=== PATIENT | female | born 1995 | race Caucasian/White ===

== ENCOUNTER 2025-01-11 09:26 | Outpatient (AMB) | payer BC, SELFPAY ==
--- OUTSIDE RECORDS SUMMARY | 2023-10-19 14:58 | XMS_ITS | Encounter Summary ---
Author Organization [facility] Address [address] [place] [address] Care Team Providers Care Stripper Color Name Role Phone Cony Guardado MD Unavailable Tanner Santiago MD Primary Care Provider [phone] Encounter Details Date Type Department Care Team (Late st Contact Info) Description 10/19/2023 3:58 PM EDT Hospital Encounter [facility] Ur[facility] Care [address] [place] [address] Social History Tobacco Use Types Packs/Day [...] and Family Not on file 10/28/2024 Attends [employer] Services Not on file 10/28 Active Member [...] any time in the past 12 m [facility], were you homeless or living in a snf (including now)? No 10/28/2024 Education Answer Date [...] on filedocumented in this encounter Care Teams Stripper Color Relationship Specialty Start Date End Date Tanner Santiago MD [address] [place] [phone] PCP - General Internal Medicine 08/18/23 Cony Guardado MD [address] [place] [id number] Gastroenterology 08/16/23 documented as of this encounter
--- OUTSIDE RECORDS SUMMARY | 2025-01-11 09:29 | XMS_ITS | Encounter Summary ---
Author Organization [facility] Address [address] [place] [address] Phone Care Team Providers Care Garment Sewing Machine Operator Name Role Phone Unavailable Primary Care Provider Unavailabl e Encounter Details Date Type Department Care Team (Late st Contact Info) Description 04/14/2009 Documentation EM Family Medicine [address] [place], [place] [id number] Family Medicine, Physician [address] [place] [address] Social History Tobacco Use Types Packs/Day Years Used Date Smoking Tobacco: Never Assessed Comments Unknown Sex and Gender Information Value Date Recorded Sex Assigned at Not on file Legal Sex Female 6:09 PM EDT Gender Identity Not on file Sexual Orientation Not on file documented as of this encounter Plan of Treatment Not on file documented as of this encounter Visit Diagnoses Not on filedocumented in this encounter
--- OUTSIDE RECORDS SUMMARY | 2025-01-11 09:29 | XMS_ITS | Clinical Summary ---
Author Organization [facility] Address [address] [place] [address] Care Team Providers Care Breakfast Host Name Role Phone Cony Guardado MD Unavailable Tanner Santiago MD Primary Care Provider [phone] Allergies Active Allergy Reactions Criticality Noted Date Comments Amoxicillin-Pot Clavulanate Rash/Dermatitis Low 04/15/2011 Codeine Nausea And Vomiting 09/20/2012 Diphenhydramine Other (See Comments) Medium 02/15/2016 QT syndrome Latex Hives High 02/12/2013 Miconazole Other (See Comments) Low 05/10/2011 Morphine Anaphylaxis,Shortne ss Of Breath,Rash/Dermati tis High 06/19/2014 Penicillins Rash/Dermatitis Low 04/15/2011 Prochlorperazine Dyskinesia/Dystonia Medium 05/10/2011 Promethazine Unknown/Patient and Family Unable to Define,Dyskinesia/D ystonia,Other (See Comments) Medium 04/15/2011 Loss of muscle control Pseudoephedrine Other (See Comments),Benign arrhythmia High 08/10/2023 Sertraline Unknown/Patient and Family Unable to Define Medium 08/10/2023 pt reports she had an adverse reaction to this in the past Sulfamethoxazole-Trimethop rim Hives High 09/13/2024 Tramadol Hives High 09/20/2023 Medications acetaminophen (TYLENOL) 500 MG tablet Active Cyanocobalamin 1000 MCG Cap Take 1,000 mcg by mouth daily. Active ferrous sulfate 325 (65 FE) MG tablet Take 1 tablet (325 mg total) by mouth every morning with breakfast. Active Riboflavin 400 MG Tab 01/16/20 24 Active albuterol (PROVENTIL HFA; VENTOLIN HFA) 108 (90 Base) MCG/ACT inhalerIndicati ons:Mild intermittent asthma without complication Inhale 2 puffs 4 times daily (every 6 hours) as needed for wheezing. 1 each 03/05/20 24 Active bisacodyl (DULCOLAX) 5 MG EC tabletIndicatio ns:Abnormal CT scan, colon,Iron deficiency,Loos e stools,Weight loss Take 4 tablets (20 mg total) by mouth once. Take all 4 tablets 1 hour prior to starting to drink prep, on day prior to colonoscopy. 4 tablet 07/16/19 25 Active Additional Information Patient not taking.Reported on 10/30/2024 tranexamic acid (LYSTEDA) 650 MG Tab tabletIndicatio ns:Heavy Menstrual Bleeding Take 2 tablets (1,300 mg total) by mouth 3 (three) times a day. 30 tablet 1 09/25/19 25 Active Additional Information Patient not taking.Reported on 10/30/2024 medroxyPROGESTE Rodri (PROVERA) 5 MG tablet 10/15/19 25 Active OMEprazole (PriLOSEC) 40 MG capsuleIndicati ons:Dyspepsia,M ucus in stool,Bloody stool TAKE 1 CAPSULE BY MOUTH EVERY MORNING BEFORE BREAKFAST. TAKE ATLEAST 1/2 HOUR BEFORE MEAL. 30 capsule 3 12/21/19 25 Active OMEprazole (PriLOSEC) 40 MG capsuleIndicati ons:Dyspepsia,M ucus in stool,Bloody stool Take 1 capsule (40 mg total) by mouth every morning before breakfast. Take atleast 1/2 hour before meal. 30 capsule 3 12/19/19 25 025 Discontinued OMEprazole (PriLOSEC) 40 MG capsuleIndicati ons:Dyspepsia,M ucus in stool,Bloody stool TAKE 1 CAPSULE BY MOUTH EVERY MORNING BEFORE BREAKFAST. TAKE ATLEAST 1/2 HOUR BEFORE MEAL. 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 08/18/2023 08/18/2023 PFO (patent foramen ovale) 08/18/202308/17 Endometriosis 08/18/2023 08/18/2023 Current smoker 08/18/2023 08/18/2023 Asthma, moderate persistent 08/18/202308/04 Polycystic ovaries 08/18/2023 08/18/2023 Prolonged QT interval 05/17/2011 08/18/2023 Overview (08/18/2023): See pediatric cardiolgy report 12/14/2011 Weight loss 05/10/2011 08/18/2023 Resolved Problems Problem Noted Date Diagnosed Date Resolved Date Mood disorder 08/18/2023 08/18/2023 08/18/2023 Encounters Date Type Department Care Team Description 10/30/2024 2:00 PM EDT Telemedicine [address] [phone] Tanner Santiago MD Infertility management (Primary Dx) 10/30/2024 Travel 10/15/2024 10:30 AM EDT Office Visit [facility] [place] [address] [place] [address] Sherlyn Coronado MD Fibroadenoma of breast, right (Primary Dx) 10/15/2024 8:56 AM EDT - 10/15/2024 11:59 PM EDT Hospital Encounter [facility] [address] [place] [address] Fibroadenoma, right Discharge Disposition: Home or Self Care 10/15/2024 Travel from Last 3 Months Immunizations Immunization Administration Dates Next Due DTaP 06/05/1998, 5,1993,08/11,1993 DTaP / HiB / IPV 07/12/1994,199 4,1993,06/09 H1N1 All Forms 04/30/2009 H1N1 Inj Preservative Free 04/30/2009 HPV Quadrivalent 09/18/2008,12/22/2007, 8 Hep B, Adolescent or Pediatric 1993,1993,1993 Hib 07/12/1994,199 4,1993,06/09 Hib (PRP-T) 07/12/1994, 4,1993,06/09 IPV 06/05/1998, 5,1993,06/09 Influenza (AFLURIA/FLUZONE) Inactivated/Split Quadrivalent with Preservative IM 12/07/2010,12/10/2009,12/22/2007 Influenza Inactivated/Split Preservative Free IM 12/26/2022,12/29/2021,12/16/2020,01/19,12/06/2017,02/09/2017,12/20/2016 ,12/18/2015,02/11/2015,12/18/2013,08/2012,12/07/2010,12/10/2009, 8,12/19/2006,01/05/2006,07/28/2003 Influenza Virus Trivalent Sp lit Vaccine (MDV) IM 12/26/2022,12/29/2021,12/16/2020,01/19,12/06/2017,02/09/2017,12/20/2016 ,12/18/2015,02/11/2015,12/18/2013,0 08/2012,12/07/2010,12/10/2009, 8,12/19/2006,01/05/2006,07/28/2003 Influenza Whole 12/04/2018 Influenza, Unspecified 01/01/2024,2009,12/19/2006,07/27 MMR 06/05/1998,07/12/1994 Meningococcal MCV4P (Menactra) 09/11/2007 Meningococcal Polysaccharide MenACWY-TT Conjugate (Penbraya) 09/11/2007 Meningococcal, Unspecified 09/11/2007 PPD Test 02/15/2016,05/14/2012 Pneumococcal Polysaccharide 23-Valent 09/05/2017 Td 06/26/2003 Td, Unspecified 06/26/2003 Tdap 11/30/2021, 9,09/18/2008,06/25 Varicella 05/16/2012,05/16/2012,03/06/1997 Family History Medical History Relation Name Comments Blood Clots Maternal Aunt Bebe Blood clot in leg Hypertension Maternal Aunt Bebe Colon polyps Maternal Grandfather Rich Multipl e colon polyps Heart attack Maternal Grandfather Rich Hypertension Maternal Grandfather Rich Prostate cancer Maternal Grandfather Rich Skin cancer Maternal Grandfather Rich Blood Clots Maternal Grandmother Vero Blood c lot in legs Hypertension Maternal Grandmother Vero Bleeding Disorder Mother Mom Vontonielibra nt Crohn's disease Mother Mom Diabetes Paternal Grandfather Rolalnd Breast cancer Paternal Grandmother Grandmother Starte d in abdomen Cancer, other Paternal Grandmother Grandmother Colon cancer Paternal Grandmother Grandmother Stomach cancer Paternal Grandmother Grandmother Thyroid disease Sister Melody Worley Relation Name Status Comments Father Alive Maternal Aunt Bebe Maternal Grandfather Rich Maternal Grandmother Vero Mother Mom Alive Paternal Grandfather Rolalnd Alive Paternal Grandmother Grandmother Sister Melody Alive Social History Tobacco Use Types Packs/Day Years Used Date Smoking Tobacco: Never Smokeless Tobacco: Never Tobacco Cessation:Counseling Given: Not Answered Comments:Second hand exposure. Alcohol Use Standard Drinks/Week Comments Not Currently 0 (1 standard drink = 0.6 oz pur e alcohol) Socially, rarely [facility] Utilities Answer Date Recorded In the past 12 months has [employer], gas, oil, or water [employer] threatened to shut off services in your home? No 10/28/2024 Social Connection and Isolation Panel Answer Date Recorded In a typical week, how many times do you talk on the phone with family, friends, or neighbors? More than three times a week 10/28/2024 Frequency of Social Gatherin gs with Friends and Family Not on file 10/28/2024 Attends [employer] Services Not on file 10/28 Active Member [...] any time in the past 12 m [facility], were you homeless or living in a detention (including now)? No 10/28/2024 Education Answer Date [...] Orientation Heterosexual (straight) 01/12 4:38 PM EST Last Filed Vital Signs Vital Sign Reading Time Taken Comments Blood Pressure 108/70 10/15/2024 9:15 AM EDT Pulse 85 10/15/2024 9:15 AM EDT Temperature 36.8 C (98.3 F) 10/15/2024 9:15 AM EDT Respiratory Rate 18 10/15/2024 9:15 AM EDT Oxygen Saturation 98% 10/15/2024 9:15 AM EDT Inhaled Oxygen Concentration - - Weight 70.3 kg (155 lb) 10/30/2024 1:41 PM EDT Height 165.1 cm (5' 5 ) 10/30/2024 1:41 PM EDT Body Mass Index 25.79 10/30/2024 1:41 PM EDT Plan of Treatment Health Maintenance Due Date Last Done Comments Hepatitis C Virus Screening 1993 Physical 2011 Pneumococcal Vaccine: Pediat faviola (0-5 Years) and At-Risk Patients (6 to 49 Years) (2 of 2 - PCV) 09/05/2018 09/05/2017 Influenza Vaccine 10/04/2024 01/01/2024, , 12/26/2022, Additional history exists COVID-19 Vaccine ( - 2024-2 6 season) 2024 03/27/2021, 04/09/2020, 03/12/2020 Pap Smear (Ages 21-65) 08/20/2027 08/19/2024 Colonoscopy (Out of Age Range) 08/14/2029 08/14/2024 DTaP/Tdap/Td Vaccines (10 - Td or Tdap) 12/01/2031 11/30/2021, 09/18/2008, 09/18/2008, Additional history exists Hepatitis B Vaccines Completed 1993, 1993, 1993 HPV Vaccines Completed 09/18/2008, 12/04, 09/11/2007 HIV Screening Completed 08/19/2023 Procedures Procedure Name Priority Date/Time Associated Diagnosis Comments US BREAST DIAGNOSTIC LIMITED-RIGHT Routine 10/15/2024 9:24 AM EDT Fibroadenoma, right THINPREP PAP(TEACHER DANCING) HPV SCR RFX HPV 16,18/45 Routine 08/19/2024 12:00 AM EDT HIV 1/2 AG/AB CMIA REFLEX TO CONFIRMATION Routine 08/19/2023 9:54 AM EDT Mononucleosis syndrome from Last 3 Months or Most Recently Relevant to Health Maintenance Results * US Breast diagnostic limited-Right (10/15/2024 9:24 AM EDT) Anatomical Region Laterality Modality Breast Right Ultrasound 10/15/2024 9:20 AM EDT Impressions 10/15/2024 9:21 AM EDT Unchanged hypoechoic mass right 12:00, status post guided biopsy, benign. ASSESSMENT: BI-RADS 2 - Benign. RECOMMENDATION: Return to routine annual screening mammogram Narrative 10/15/2024 9:21 AM EDT US BREAST DIAGNOSTIC LIMITED-RIGHT: 10/15/2024 9:04 AM CLINICAL INFORMATION: Follow-up for probably right breast mass status post ultrasound-guided biopsy. COMPARISON: 04/08/2024 03/28/2024 TECHNIQUE: Focused right breast ultrasound was performed. FINDINGS: Unchanged hypoechoic mass 12:00 4 cm from the nipple, biopsy-proven benign, measures 8 x 4 x 4 mm. us Sherlyn Coronado MD IMG US ORDERABLES Final Re sult * ThinPrep Pap(Rover Tender) HPV Scr Rfx HPV 16,18/45 (08/19/2024 12:00 AM EDT) Report Report [facility] Comment: Final Gynecological Cytology Report ThinPrep Pap Test, HPV Screen, Reflex HPV Genotype SPECIMEN ADEQUACY: SATISFACTORY FOR EVALUATION; ENDOCERVICAL/TRANSFORMATION ZONE COMPONENT ABSENT/INSUFFICIENT . INTERPRETATION: NEGATIVE FOR INTRAEPITHELIAL LESION OR MALIGNANCY. Electronically Signed: Evan Conner, CT(ASCP) CLINICAL INFORMATION: LMP: NG Clinical History: NG Biopsy Date: NG Specimen Source: Cervix, Endocervix Previous Pap Date: NG HPV RESULTS: HPV mRNA E6/E7 [id number] Approved: 08/20/24 Negative REF RANGE: Negative CPT Codes: 82715 ICD Codes: Z12.4 08/19/2024 08/20/2024 12: 04 PM EDT Pauly Aleman MD LAB AMB PATH/CYTO ORDERABLE S Final Result [facility] [address] [place], [place] * HIV 1/2 Ag/Ab CMIA Reflex to Confirmation (08/19/2023 9:54 AM EDT) HIV Ag/Ab, 4th Gen NON-REACT MARGARITO NON-REACT MARGARITO ClearView™ Audio Comment: HIV-1 antigen and HIV-1/HIV-2 antibodies were not detected. There is no laboratory evidence of HIV infection. PLEASE NOTE: This information has been disclosed to you from records whose confidentiality may be protected by state law. If your state requires such protection, then the state law prohibits you from making any further disclosure of the information without the specific written consent of the person to whom it pertains, or as otherwise permitted by law. A general authorization for the release of medical or other information is NOT sufficient for this purpose. For additional information please refer to http://education.[employer]/faq/QNF024 (This link is being provided for informational/ educational purposes only.) The performance of this assay has not been clinically validated in patients less than 2 years old. Blood Blood specimen / Unknown 08/19/2023 9:54 AM EDT 08/19/2023 9:55 AM EDT Narrative [facility] - 08/21/2023 5:42 PM EDT FASTING:YES FASTING: YES Tanner Santiago MD LAB BLOOD ORDERABLES Final Resu lt Breather [address] [place] [phone] from Last 3 Months or Most Recently Relevant to Health Maintenance Insurance [facility] Care Teams Breakfast Host Relationship Specialty Start Date End Date Tanner Santiago MD [address] [place] [phone] PCP - General Internal Medicine 08/18/23 Cony Guardado MD [address] [place] [phone] Gastroenterology 08/16/23
--- OUTSIDE RECORDS SUMMARY | 2025-01-11 09:29 | XMS_ITS | Clinical Summary ---
Author Organization [address] Address [address] [place] [phone] Phone Care Team Providers Care Dump Worker Name Role Phone Unavailable Primary Care Provider Unavailabl e Allergies Active Allergy Reactions Criticality Noted Date Comments Diphenhydramine Hcl Other (See Comments) Medium 02/15/2016 QT syndrome Fluconazole Rash Low 09/13/2024 Latex Hives High 02/12/2013 Macrolide Antibiotics Hives,Other (See Comments) High 05/10/2011 QT syndrome Promethazine Mental Status Change,Other (See Comments),Unknown High 04/15/2011 Loss of muscle control Loss of muscle control Loss of muscle control Loss of muscle control Loss of muscle control Loss of muscle control Pseudoephedrine Arrhythmia,Other (See Comments) High 08/10/2023 Sertraline Other (See Comments),Unknown High 08/10/2023 pt reports she had an adverse reaction to this in the past Sulfamethoxazole-Trimetho prim Hives High 09/13/2024 Tramadol Hives High 09/20/2023 Medications VENTOLIN HFA 90 mcg/actuation HFA aerosol inhaler INHALE 2 PUFFS BY MOUTH EVERY 6 HOURS NEEDED FOR WHEEZE 03/05/2024 Active Active Problems No known active problems Family History Relation Name Status Comments Father Alive Mother Alive Social History Tobacco Use Types Packs/Day Years Used Date Smoking Tobacco: Never Passive Smoke Exposure: Never Smokeless Tobacco: Never Tobacco Cessation:Counseling Given: Not Answered Alcohol Use Standard Drinks/Week Comments Not Currently 0 (1 standard drink = 0.6 oz pur e alcohol) Comments No Sex and Gender Information Value Date Recorded Sex Assigned at Not on file Legal Sex Female 3:12 PM EDT Gender Identity Not on file Sexual Orientation Not on file Last Filed Vital Signs Vital Sign Reading Time Taken Comments Blood Pressure 110/73 09/13/2024 6:06 PM EDT Pulse 101 09/13/2024 6:06 PM EDT Temperature 37 C (98.6 F) 09/13/2024 6:06 PM EDT Respiratory Rate 18 09/13/2024 6:06 PM EDT Oxygen Saturation 100% 09/13/2024 6:06 PM EDT Inhaled Oxygen Concentration - - Weight 68 kg (150 lb) 09/13/2024 6:06 PM EDT Height 165.1 cm (5' 5 ) 09/13/2024 6:06 PM EDT Body Mass Index 24.96 09/13/2024 6:06 PM EDT Plan of Treatment Health Maintenance Due Date Last Done Comments HIV screening 2006 Hepatitis C screening 2011 Influenza vaccine 10/04/2024 01/01/2024, , 12/29/2021, Additional history exists Covid-19 vaccine series ( - 2024- season) 2024 Cervical cancer screening 08/19/2029 08/19/2024 Tetanus adult (Td q 10,TDAP once) 12/01/2031 11/30/2021, 09/18/2008, 06/26/2003, Additional history exists RSV Immunization (1 - 1-dose 75+ series) 2068 Meningococcal B Vaccine Aged Out 09/11/2007 No l onger eligible based on patient's age to complete this topic Meningococcal Vaccine Aged Out 09/11/2007, 008 No longer eligible based on patient's age to complete this topic Pneumococcal Vaccine (2 - 49 years) Aged Out 09/05/2017 No longer eligible based on patient's age to complete this topic Insurance [employer]
--- OUTSIDE RECORDS SUMMARY | 2025-01-11 09:29 | XMS_ITS | Encounter Summary ---
Author Organization [facility] Address [address] [place] [address] Care Team Providers Care Rn Surgical Name Role Phone Cony Guardado MD Unavailable Tanner Santiago MD Primary Care Provider [phone] Encounter Details Date Type Department Care Team (Late st Contact Info) Description 08/14/2024 Scanned Document [facility] [address] [facility] [place] [address] [place] [address] Louie Nguyen MD [address] [facility] [address] [place] [address] Social History Tobacco Use Types Packs/Day Years Used Date Smoking Tobacco: Never Smokeless Tobacco: Never Comments:Second hand exposur e. Alcohol Use Standard Drinks/Week Comments Not Currently 0 (1 standard drink = 0.6 oz pur e alcohol) Socially, rarely Comments No Sex and Gender Information Value Date Recorded Sex Assigned at Female 01/12/2023 4:38 PM EST Legal Sex Female 6:33 PM EST Gender Identity Female 01/12/2023 4:38 PM EST Sexual Orientation Heterosexual (straight) 01/12 4:38 PM EST documented as of this encounter Progress Notes * Cynthia Hill MA - 08/14/2024 2:20 PM EDT My chart message sent to pt to review results from Dr. Zaidi Seen by patient Ashlie Elizabeth Saira on 08/22/2024 5:43 PM HM UPDATED RECALL COLON: 5 YEARS RECALL EGD PATH SENT TO PCP documented in this encounter Plan of Treatment Not on file documented as of this encounter Procedures Procedure Name Priority Date/Time Associated Diagnosis Comments PATHOLOGY REPORT 08/14/2024 12:0 0 AM EDT documented in this encounter Results * Pathology (08/14/2024 12:00 AM EDT) us Louie Nguyen MD PATHOLOGY/CYTOLOGY KASSIDY YANCEY Final Result documented in this encounter Visit Diagnoses Not on filedocumented in this encounter Care Teams Rn Surgical Relationship Specialty Start Date End Date Tanner Santiago MD [address] [place] [id number] PCP - General Internal Medicine 08/18/23 Cony Guardado MD [address] [place] [id number] Gastroenterology 08/16/23 documented as of this encounter
--- OUTSIDE RECORDS SUMMARY | 2025-01-11 09:29 | XMS_ITS | Clinical Summary ---
Author Organization [facility] Building Address [address] [place] [address] Phone Care Team Providers Care Certified Executive Chef Name Role Phone Be Woodward MD Primary Care Provider [phone] Allergies Active Allergy Reactions Criticality Noted Date Comments Amoxicillin-Pot Clavulanate Other,Rash Low 04/15/2011 Codeine Nausea And Vomiting 09/20/2012 Macrolide Antibiotics Other 05/10/2011 Miconazole Other 05/10/2011 Morphine Anaphylaxis,Other,R elyse,Shortness of breath High 06/19/2014 Penicillins Other,Rash Low 04/15/2011 Prochlorperazine Other Medium 05/10/2011 Promethazine Other Medium 04/15/2011 Loss of muscle control Loss of muscle control Loss of muscle control Pseudoephedrine Other High 08/10/2023 Sertraline Other Medium 08/10/2023 pt reports she had an adverse reaction to this in the past Tramadol 09/20/2023 Medications acetaminophen (TYLENOL) 500 mg tablet Active albuterol HFA (PROAIR HFA ; PROVENTIL HFA ; VENTOLIN HFA) 90 mcg/actuation inhaler Inhale 2 puffs by mouth every 6 hours as needed. 4 Active cyanocobalamin, vitamin B-12, 1,000 mcg capsule Take by mouth. Activ e ferrous sulfate 325 mg (65 mg elemental iron) tablet Take 1 tablet (325 mg total) by mouth every morning with breakfast. Active gabapentin (NEURONTIN) 100 mg capsule Take 1 capsule (100 mg total) by mouth 3 (three) times a day. 4 Active methocarbamoL (ROBAXIN) 500 mg tablet Take 1 tablet (500 mg total) by mouth 3 (three) times a day as needed. - Oral Active diclofenac (VOLTAREN) 1 % topical gel Apply 2 g topically 4 (four) times a day as needed. - Apply externally Active lidocaine (LIDODERM) 5 % patch Place 1 patch onto the skin every 12 (twelve) hours. Remove & Discard patch within 12 hours or as directed by MD - Transdermal Active LORazepam (Ativan) 1 mg tabletIndication s:Intractable migraine with status migrainosus, unspecified migraine type Take 1 tablet one hour before MRI. No driving for remainder of day after taking medication. 1 tablet Active Active Problems Problem Noted Date Diagnosed Date Acid reflux 12/28/2023 Overview (12/28/2023): Kiko Fundal Plication [address] Colón Adverse effect of ibuprofen 12/28/2023 Anemia 12/28/2023 Anxiety 12/28/2023 Asthma, moderate persistent 12/28/2023 Bruises easily 12/28/2023 Cardiac dysrhythmia 12/28/2023 Chronic midline low back pain without sciatica 1 Current smoker 12/28/2023 Disease due to severe acute respiratory syndrome coronavirus 2 (SARS-CoV-2) 12/28/2023 Dysmenorrhea 12/28/2023 Dyspareunia in female 12/28/2023 Endometriosis 12/28/2023 Fibromyalgia 12/28/2023 Infertility, female 12/28/2023 Insomnia 12/28/2023 Insulin resistance 12/28/2023 Irregular menstruation 12/28/2023 Irritable bowel syndrome (IBS) 12/28/2023 Left upper quadrant pain 12/28/2023 Long Q-T syndrome 12/28/2023 Menorrhagia 12/28/2023 Metrorrhagia 12/28/2023 PFO (patent foramen ovale) 12/28/2023 Polycystic ovaries 12/28/2023 Recurrent loss without current pregnan cy 12/28/2023 Seasonal allergic rhinitis 12/28/2023 Subserous leiomyoma of uterus 12/28/2023 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 Polyarthralgia 09/20/2023 Sebaceous cyst 02/12/2013 Overview (12/28/2023): 02/12/2013 - midline on mons at the apex of the clitoral roberts no inflamation or irritation presently Follicular cyst of ovary 05/31/2012 Overview (12/28/2023): Right on u/s 05/29/12 Prolonged QT interval 05/17/2011 Overview (12/28/2023): See pediatric cardiolgy report 12/14/2011 Nevus, non-neoplastic 05/10/2011 Dyspnea and respiratory abnormality 05/10/2011 Somatization disorder 05/10/2011 Anxiety and depression 04/15/2011 Overview (12/28/2023): Dr PHYLLIS VEGA Psych [address] Migraine 04/15/2011 Overview (12/28/2023): Dr Patel [address] Immunizations Immunization Administration Dates Next Due DTaP (Infanrix) 6wks to less than 7yo ,10/19/1994,1993,08/11,1993 [id number] (Pentacel) 2mo to less than 5yo 07/12/1994,1993,1993,06/09 H1N1 Inj Preservative Free 04/30/2009,04/30/2009 HPV, Quadrivalent 09/18/2008,12/22/2007,09/11/19 08 Hepatitis B Pediatric (Enger ix B; Recombivax HB) to less than 20 yo 1993,1993,1993 HiB PRP-T conjugate (Acthib, Hiberix) 6wks and older 07/12/1994,1993,1993,06/09 IPV Inactivated polio (Ipol) 6wks and older 06/05/1998,10/19/1994,1993,06/09 Influenza Quadrivalent, with preservative (Fluzone; Afluria) 6mo and older 12/07/2010,12/10/2009,12/22/2007 Influenza Whole 12/04/2018 Influenza trivalent, with pr eservative (Fluzone; Afluria) 6mo and older 12/26/2022,12/29/2021,12/16/2020,01/19,12/06/2017,02/09/2017,12/20/2016 ,12/18/2015,02/11/2015,12/18/2013,08/2012,12/07/2010,12/10/2009, 8,12/19/2006,01/05/2006,07/28/2003 Influenza, Unspecified 12/19/2006,07/28/2003 MMR, measles mumps and rubel la Live (Priorix; M-M-R II) 12mo and older 06/05/1998,07/12/1994 Meningococcal Group MenABCWY (Penbraya) 16yo to less than 24yo 09/11/2007 Meningococcal MCV4P 09/11/2007 Pneumococcal polysaccharide 23 valent (Pneumovax 23) 2yo and older 09/05/2017 Tb Skin Test 02/15/2016,05/14/2012 Td Tetanus diptheria (Tdvax) 7yo and older 06/26/2003 Td Tetanus diptheria, preser vative free (Tenivac) 7yo and older 06/26/2003 Tdap Tetanus diptheria acell ular pertussis (Boostrix; Adacel) 7yo and older 09/18/2008 Varicella live (Varivax) 12m o and older 05/16/2012,03/06/1997 Surgical History Surgery Date Site/Laterality Comments EYE SURGERY 2000 PROCEDURE: HISTORICAL EYE SURGERY; COMMENT: lazy eye APPENDECTOMY 2005 PROCEDURE: DE APPENDECTOMY CHOLECYSTECTOMY 2005 PROCEDURE: DE CHOLECYSTECTOMY MOLE REMOVAL 2007 PROCEDURE: HISTORICAL MOLE (REMOVAL OF); COMMENT: benign OTHER SURGICAL HISTORY 2007 PROCEDURE: DE UNLISTED DIAGNOSTIC GASTROENTEROLOGY PROCEDURE; COMMENT: Kiko fundoplication ESOPHAGOGASTRODUODENOSCOPY 09/05/12 [facility] propofol PROCEDURE: DE ESOPHAGOGASTRODUODENOSCOPY TRANSORAL DIAGNOSTIC; COMMENT: normal OTHER SURGICAL HISTORY 09/03/2013 PROCEDURE: DE DILATION & CURETTAGE DX&/THER NONOBSTETRIC OTHER SURGICAL HISTORY 2007 PROCEDURE:Onset;COMMENT:For Acid Reflux SHOULDER SURGERY 2019 Left PROCEDURE:SHOULDER SURGERY OTHER SURGICAL HISTORY 2014 Left PROCEDURE:knee sugery TONSILLECTOMY PROCEDURE:TONSILLECTOMY;COMMEN T:[id number] OTHER SURGICAL HISTORY Left PROCEDURE:Eye Sugery;COMMENT:around [id number] SECTION 2021 PROCEDURE: SECTION APPENDECTOMY 2007 PROCEDURE:APPENDECTOMY GALLBLADDER SURGERY 2007 PROCEDURE:GALLBLADDER SURGERY OTHER SURGICAL HISTORY PROCEDURE:d&c polyp removal ;COMMENT:6 total Medical History Medical History Date Comments Asthma DX:Asthma Hiatal hernia DX:Hiatal hernia Acid reflux DX:Acid reflux; COMMENT: Kiko Fundal Plication Migraine 04/15/2011 DX:Migraine Anxiety and depression 04/15/2011 DX:Anxiet y and depression Prolonged QT interval syndrome 08/04/2006 D X:Prolonged QT interval syndrome; COMMENT: resolved Febrile seizures (CMS/HCC V2 4, CMS/HCC V28) DX:Febrile seizures (HCC) PAT (secretory otitis media) DX: PAT (secretory otitis media) OM (otitis media) DX:OM (otitis media) Allergic rhinitis DX:Allergic rh initis IBS (irritable bowel syndrome) 06/05/2003 D X:IBS (irritable bowel syndrome) RAD (reactive airway disease) 08/05/2003 DX :RAD (reactive airway disease) Weight loss 02/03/2005 DX:Weight loss Constipation DX:Constipation Gastritis [id number] DX:Gastritis S/P Kiko fundoplication (w ithout gastrostomy tube) procedure 01/04/2010 DX:S/P Kiko fundoplicati on (without gastrostomy tube) procedure Biliary dyskinesia DX:Biliary dy skinesia Back pain DX:Back pain Atypical nevus 12/04/2005 DX:Atypical nevu s 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 DX:Psychoge emi dystonia; COMMENT: admitted Anemia 07/04/2006 DX:Anemia Concussion 12/04/2006 DX:Concussion Telogen effluvium 03/06/2008 DX:Telogen eff luvium Coping with chronic pain 07/04/2009 DX:Copi ng with chronic pain Tinea unguium DX:Tinea unguium Hypercholesterolemia DX:Hypercho lesterolemia Heart palpitations DX:Heart palp itations Sleep disturbances DX:Sleep dist urbances Menorrhagia DX:Menorrhagia BHUMIKA positive DX:BHUMIKA positive Somatization disorder 05/10/2011 DX:Somatiz ation disorder Prolonged QT interval 05/17/2011 DX:Prolong ed QT interval Family History Relation Name Status Comments Father Alive ptsd, mental is sues Maternal Grandfather Alive heart a ttack, htn, lipid Maternal Grandmother Alive lipids Mother Alive bipolar/depress ion stomach issues, von willebrandt Paternal Grandfather Alive Paternal Grandmother Alive Sister Alive hypothyroid Social History Tobacco Use Types Packs/Day Years Used Date Smoking Tobacco: Never Smokeless Tobacco: Never Tobacco Cessation:Counseling Given: Not Answered Alcohol Use Standard Drinks/Week Comments No 0 (1 standard drink = 0.6 oz pur e alcohol) Comments Unknown Sex and Gender Information Value Date Recorded Sex Assigned at Not on file Legal Sex Female 6:37 PM EST Gender Identity Not on file Sexual Orientation Not on file Obstetrics History Last Filed Vital Signs Vital Sign Reading Time Taken Comments Blood Pressure 103/68 01/16/2024 2:59 PM EST Pulse 78 01/16/2024 2:59 PM EST Temperature - - Respiratory Rate - - Oxygen Saturation 98% 01/16/2024 2:59 PM EST Inhaled Oxygen Concentration - - Weight 68 kg (150 lb) 12/26/2023 10:49 AM EDT Height 165.1 cm (5' 5 ) 12/26/2023 10:49 AM EDT Body Mass Index 24.96 12/26/2023 10:49 AM EDT Plan of Treatment Health Maintenance Due Date Last Done Comments Cervical Cancer Screening: Pap Smear 2014 Pneumococcal Vaccine: Pediatrics (0 to 5 Years) and At-Risk Patients (6 to 49 Years) (2 of 2 - PCV) 09/05/2018 09/05/2017 Hepatitis C Screening 12/13/2023 Social Influencers of Health Screening 12/13/2023 Depression Screening 03/06/2024 COVID-19 Vaccine ( season) 2024 03/27/2021, 04/09/2020, 03/12/2020 Influenza Vaccine (#1) 2024 , 12/29/2021, 12/16/2020, Additional history exists DTaP,Tdap,and Td Vaccines (10 - Td or Tdap) 12/01/2031 11/30/2021, 09/18/2008, 06/26/2003, Additional history exists RSV Immunization Adult Patients (1 - 1-dose 75+ series) 2068 Hepatitis B Vaccines Completed 1993, 1993, 1993 HIB Vaccines Completed 07/12/1994, 11/1994, 1993, Additional history exists IPV Vaccines Completed 06/05/1998, 10/04, 07/12/1994, Additional history exists MMR Vaccines Completed 06/05/1998, 07/12/1994 Meningococcal ACWY Vaccine Aged Out 09/11/2007, No longer eligible based on patient's age to complete this topic Meningococcal B Vaccine Aged Out 09/11/2007 No l onger eligible based on patient's age to complete this topic HPV Vaccines Completed 09/18/2008, 12/04, 09/11/2007 Varicella Vaccines Completed 05/16/2012, 03/06/1997 HIV Screening Completed 08/19/2023 Hepatitis A Vaccines Aged Out No long er eligible based on patient's age to complete this topic RSV Immunization Patients Under 20 months Aged Out No longer eligible based on patient's age to complete this topic Procedures Procedure Name Priority Date/Time Associated Diagnosis Comments HIV SCREENING Routine 08/19/2023 from Last 3 Months or Most Recently Relevant to Health Maintenance Results * HIV Screening (08/19/2023) [facility] HIV Screening Abstracted Historical Provider MD HEALTH MAINTENANCE Final Result from Last 3 Months or Most Recently Relevant to Health Maintenance Insurance * Guarantor: Ashlie Chávez Account Type Relation to Patient Date of Phone Billing Address Personal/Family Self 1995 [phone] (Work) [address] [place] [address] [place]ICA[place] Care Teams Certified Executive Chef Relationship Specialty Start Date End Date Be Woodward MD [address] [place] [address] PCP - General Internal Medicine 03/13/15
--- OUTSIDE RECORDS SUMMARY | 2025-01-11 09:29 | XMS_ITS | Encounter Summary ---
Author Organization [facility] Address [address] [place] [address] Care Team Providers Care Baker Name Role Phone Cony Guardado MD Unavailable Tanner Santiago MD Primary Care Provider [phone] Encounter Details Date Type Department Care Team (Late st Contact Info) Description 08/31/2023 Scanned Document [facility] [address] [place], [place] [phone] Tanner Santiago MD [address] [place] [address] Social History Tobacco Use Types Packs/Day Years [...] PM EST documented as of this encounter Plan of Treatment Not on file documented as of this encounter Visit Diagnoses Not on filedocumented in this encounter Care Teams Baker Relationship Specialty Start Date End Date Tanner Santiago MD [address] [place] [address] PCP - General Internal Medicine 08/18/23 Cony Guardado MD [address] [place] [address] Gastroenterology 08/16/23 documented as of this encounter
--- OUTSIDE RECORDS SUMMARY | 2025-01-11 09:29 | XMS_ITS ---
Author Name [facility] Organization Unknown Results Test Name/Text Value Interpretation Date Range Source B-HCG Preg SerPl Ql Negative 09/25/19 2 5 - [facility] Magnesium SerPl-mCnc 2.1 mg/dL 5 1.6 - 2.7 [facility] BUN SerPl-mCnc 14.0 mg/dL 5 8 - 21 [facility] Albumin/Glob SerPl 1.9 Ratio 5 1 - 3 [facility] ALP SerPl-cCnc 65.0 U/L 5 32 - 122 [facility] Glucose SerPl-mCnc 92.0 mg/dL 5 65 - 99 [facility] Chloride SerPl-sCnc 100.0 mmol/L 09/25/19 2 5 98 - 107 [facility] Globulin Ser Calc-mCnc 2.4 g/dL 5 1.5 - 3.9 [facility] BUN/Creat SerPl 20.0 Ratio 5 10 - 25 [facility] Creat SerPl-mCnc 0.7 mg/dL 5 0.4 - 1.1 [facility] Prot SerPl-mCnc 7.0 g/dL 5 6.3 - 8.3 [facility] Albumin SerPl-mCnc 4.6 g/dL 5 3.5 - 5 [facility] AST SerPl-cCnc 16.0 U/L 5 10 - 50 [facility] Potassium SerPl-sCnc 4.1 mmol/L 5 3.4 - 5.3 [facility] CO2 SerPl-sCnc 25.0 mmol/L 5 22 - 33 [facility] Anion Gap Bld-sCnc 10.0 07/22/202 5 7 - 17 [facility] ALT SerPl-cCnc 8.0 U/L Below low normal 5 10 - 50 [facility] GFR/BSA.pred SerPlBld GUR-IPY-EnSFxw >90.0 5 59 - [facility] Sodium SerPl-sCnc 135.0 mmol/L Below low normal 5 136 - 145 [facility] Bilirub SerPl-mCnc 0.4 mg/dL 5 0.2 - 1 [facility] Calcium SerPl-mCnc 9.0 mg/dL 5 8.7 - 10.5 [facility] Troponin T SerPl-mCnc <6.0 ng/L 5 - 15 [facility] Delta NO PREVIOUS RESULT 5 - 3 [facility] Basophils num Bld Auto 0.01 Thou/uL 5 0 - 0.2 [facility] Lymphocytes num Bld Auto 2.06 Thou/uL 5 1.5 - 4.5 [facility] Lymphocytes/leuk NFr Bld Auto 37.3 % 5 [facility] Platelet num Bld Auto 205.0 Thou/uL 5 150 - 450 [facility] Monocytes num Bld Auto 0.31 Thou/uL 5 0.2 - 1.5 [facility] Imm Granulocytes num Bld Auto 0.02 Thou/uL 5 0 - 0.1 [facility] Basophils/leuk NFr Bld Auto 0.2 % 5 [facility] PMV Bld Auto 11.4 fL 5 7.5 - 12.5 [facility] RBC num Bld Auto 4.26 Mil/uL 5 4 - 5.4 [facility] MCH RBC Qn Auto 28.4 pg 5 26 - 34 [facility] Imm Granulocytes/leuk NFr Bld Auto 0.4 % 5 [facility] MCV RBC Auto 83.0 fL 5 80 - 100 [facility] RDW RBC Auto-Rto 12.6 % 5 11.5 - 14.5 [facility] Hgb Bld-mCnc 12.1 g/dL 5 11.7 - 15.7 [facility] Eosinophil/leuk NFr Bld Auto 0.7 % 5 [facility] Neutrophils/leuk NFr Bld Auto 55.8 % 5 [facility] WBC num Bld Auto 5.5 Thou/uL 5 4 - 11 [facility] Hct VFr Bld Auto 35.5 % 5 35 - 47 [facility] Eosinophil num Bld Auto 0.04 Thou/uL 5 0 - 0.7 [facility] Neutrophils num Bld Auto 3.09 Thou/uL 5 2 - 7.5 [facility] Monocytes/leuk NFr Bld Auto 5.6 % 5 [facility] MCHC RBC Auto-mCnc 34.1 g/dL 5 30 - 36 [facility] Iron Satn MFr SerPl 19.0 % (calc) Normal 02 5 16 - 45 [facility] TIBC SerPl-mCnc 445.0 mcg/dL (calc) Normal 06/28 5 250 - 450 [facility] Ferritin SerPl-mCnc 7.0 ng/mL Below low normal 06/05 5 16 - 154 [facility] Iron SerPl-mCnc 86.0 mcg/dL Normal 5 40 - 190 [facility] Monocytes NFr Bld Auto 4.7 % Normal 5 [facility] Platelet # Bld Auto 205.0 Thousand/uL Normal 5 140 - 400 [facility] RDW RBC Auto 12.7 % Normal 5 11 - 15 [facility] Monocytes # Bld Auto 197.0 cells/uL Below low normal 5 200 - 950 [facility] RBC Auto 87.3 fL Normal 5 80 - 100 [facility] Eosinophil # Bld Auto 8.0 cells/uL Below low normal 5 15 - 500 [facility] Eosinophil NFr Bld Auto 0.2 % Normal 5 [facility] MCH RBC Qn Auto 28.2 pg Normal 5 27 - 33 [facility] Neutrophils # Bld Auto 2255.0 cells/uL Normal 5 1500 - 7800 [facility] Lymphocytes NFr Bld Auto 41.2 % Normal 5 [facility] WBC # Bld Auto 4.2 Thousand/uL Normal 5 3.8 - 10.8 [facility] Neutrophils NFr Bld Auto 53.7 % Normal 5 [facility] PMV Bld Brandon-Bryce 11.8 fL Normal 5 7.5 - 12.5 [facility] Lymphocytes # Bld Auto 1730.0 cells/uL Normal 5 850 - 3900 [facility] Basophils # Bld Auto 8.0 cells/uL Normal 5 0 - 200 [facility] RBC # Bld Auto 4.4 Million/uL Normal 5 3.8 - 5.1 [facility] MCHC RBC Auto-EntMCnc 32.3 g/dL Normal 5 32 - 36 [facility] Hct VFr Bld Auto 38.4 % Normal 5 35 - 45 [facility] Basophils NFr Bld Auto 0.2 % Normal 5 [facility] Hgb Bld-mCnc 12.4 g/dL Normal 5 11.7 - 15.5 [facility] Folate SerPl-mCnc 12.0 ng/mL Normal 5 [facility] Vit B12 SerPl-mCnc 222.0 pg/mL Normal 5 200 - 1100 [facility] Cell type Spec Normal 5 [facility] Appearance Bld Normal 5 [facility] Viable cells NFr Spec 98.1 % Normal 5 [facility] Specimen source Normal 5 [facility] Pathologist name Normal 5 [facility] Leukemia markers Bld-Imp Normal 5 [facility] Events Counted Spec 22.0 Normal 06/29/19 2 5 [facility] Clinical info Normal 5 [facility] TSH SerPl-aCnc 1.07 mIU/L Normal 5 [facility] MetanephS SerPl-mCnc 79.0 pg/mL Normal 5 - [facility] Metaneph Free SerPl-mCnc <25 Normal 5 - [facility] Normetaneph Free SerPl-mCnc 79.0 pg/mL Normal 5 - [facility] Cortis AM peak SerPl-mCnc 12.9 mcg/dL Normal 5 [facility] Ratio (CBA/vW Ag) 0.53 ratio Normal 5 - [facility] vWF CBA Act/Nor PPP EIA 28.0 % normal Below low normal 5 45 - 198 [facility] vWF multimers PPP Ql REPORT Normal 5 [facility] vWf:Ac Act/Nor PPP Imm 91.4 % Normal 5 50 - 200 [facility] vWF Ag Act/Nor PPP Imm 101.4 % Normal 5 50 - 200 [facility] Albumin SerPl-mCnc 4.8 g/dL Normal 5 3.5 - 5 [facility] ALP SerPl-cCnc 67.0 U/L Normal 5 32 - 122 [facility] AST SerPl-cCnc 15.0 U/L Normal 5 10 - 50 [facility] Chloride SerPl-sCnc 103.0 mmol/L Normal 04/04/19 2 5 98 - 107 [facility] Sodium SerPl-sCnc 140.0 mmol/L Normal 5 136 - 145 [facility] ALT SerPl-cCnc 7.0 U/L Below low normal 5 10 - 50 [facility] Glucose SerPl-mCnc 83.0 mg/dL Normal 5 65 - 99 [facility] Bilirub SerPl-mCnc 0.3 mg/dL Normal 5 0.2 - 1 [facility] Potassium SerPl-sCnc 3.6 mmol/L Normal 5 3.4 - 5.3 [facility] BUN SerPl-mCnc 9.0 mg/dL Normal 5 8 - 21 [facility] Calcium SerPl-mCnc 9.2 mg/dL Normal 5 8.7 - 10.5 [facility] CO2 SerPl-sCnc 23.0 mmol/L Normal 5 22 - 33 [facility] Globulin Ser Calc-mCnc 2.5 g/dL Normal 5 1.5 - 3.9 [facility] Creat SerPl-mCnc 0.7 mg/dL Normal 5 0.4 - 1.1 [facility] Prot SerPl-mCnc 7.3 g/dL Normal 5 6.3 - 8.3 [facility] GFR/BSA.pred SerPlBld LQS-FBJ-VbFNhg >90.0 Normal 5 59 - [facility] BUN/Creat SerPl 13.0 Ratio Normal 5 10 - 25 [facility] Albumin/Glob SerPl 1.9 Ratio Normal 5 1 - 3 [facility] Anion Gap Bld-sCnc 14.0 Normal 5 7 - 17 [facility] Magnesium SerPl-mCnc 2.0 mg/dL Normal 5 1.6 - 2.7 [facility] B-HCG Preg SerPl Ql Negative Normal 04/04/19 2 5 - [facility] ESR Bld Qn 4.0 MM/HR Normal 5 - 20 [facility] Eosinophil num Bld Auto 0.06 Thou/uL Normal 5 0 - 0.7 [facility] Eosinophil/leuk NFr Bld Auto 0.9 % Normal 5 [facility] Imm Granulocytes/leuk NFr Bld Auto 0.5 % Normal 5 [facility] MCHC RBC Auto-mCnc 33.6 g/dL Normal 5 30 - 36 [facility] MCV RBC Auto 83.0 fL Normal 5 80 - 100 [facility] PMV Bld Auto 11.3 fL Normal 5 7.5 - 12.5 [facility] Hgb Bld-mCnc 12.7 g/dL Normal 5 11.7 - 15.7 [facility] Hct VFr Bld Auto 37.8 % Normal 5 35 - 47 [facility] Neutrophils num Bld Auto 3.84 Thou/uL Normal 5 2 - 7.5 [facility] Lymphocytes/leuk NFr Bld Auto 35.0 % Normal 5 [facility] Neutrophils/leuk NFr Bld Auto 58.0 % Normal 5 [facility] Basophils num Bld Auto 0.02 Thou/uL Normal 5 0 - 0.2 [facility] Lymphocytes num Bld Auto 2.32 Thou/uL Normal 5 1.5 - 4.5 [facility] Monocytes/leuk NFr Bld Auto 5.3 % Normal 5 [facility] Platelet num Bld Auto 193.0 Thou/uL Normal 5 150 - 450 [facility] MCH RBC Qn Auto 27.9 pg Normal 5 26 - 34 [facility] RBC num Bld Auto 4.56 Mil/uL Normal 5 4 - 5.4 [facility] WBC num Bld Auto 6.6 Thou/uL Normal 5 4 - 11 [facility] Basophils/leuk NFr Bld Auto 0.3 % Normal 5 [facility] Imm Granulocytes num Bld Auto 0.03 Thou/uL Normal 5 0 - 0.1 [facility] RDW RBC Auto-Rto 13.0 % Normal 5 11.5 - 14.5 [facility] Monocytes num Bld Auto 0.35 Thou/uL Normal 5 0.2 - 1.5 [facility] Bacteria Bld Cult SEE NOTE Normal 4 [facility] Prolactin SerPl-mCnc 3.5 ng/mL Normal 4 [facility] CRP SerPl-mCnc <3.0 Normal 4 - 8 [facility] T4 Free SerPl-mCnc 1.1 ng/dL Normal 4 0.8 - 1.8 [facility] T3 SerPl-mCnc 111.0 ng/dL Normal 4 76 - 181 [facility] aPTT PPP 31.0 sec Normal 4 23 - 32 [facility] Fact VIII Act/Nor PPP 48.0 % normal Below low normal 4 50 - 180 [facility] Coag Fact Intrinsic PPP-Imp see note Normal 4 [facility] vWf:RCo Act/Nor PPP Pl Agg 40.0 % normal Below low normal 4 42 - 200 [facility] vWF Ag Act/Nor PPP Imm 43.0 % Below low normal 4 50 - 217 [facility] vWF multimers PPP Ql see note Normal 4 [facility] vWf:RCo Act/Nor PPP Pl Agg 37.0 % normal Below low normal 4 42 - 200 [facility] WNV IgG Ser EIA-aCnc <1.3 index Normal 4 - 1.3 [facility] WNV IgM Ser EIA-aCnc <0.9 index Normal 4 - 0.9 [facility] Specimen Source Whole Blood Normal 4 [facility] EBV DNA QUANT PCR Not Detected Normal 4 [facility] EBV DNA Num XXX PCR Not Detected Normal 12/28/19 2 4 [facility] Borrelia burgdorferi Ab.IgG+IgM 0.02 EIA INDEX Normal 4 - 0.91 [facility] T. pallidum IgG+IgM Ser QI IA Nonreactive Normal 4 - [facility] CRP SerPl-mCnc <0.3 mg/dL Normal 4 0 - 0.49 [facility] vWf:Ac Act/Nor PPP Imm 49.9 % Below low normal 4 50 - 200 [facility] Sp Gr Ur Strip 1.009 Normal 4 1.003 - 1.03 [facility] pH Ur Strip 6.0 Normal 4 5 - 8 [facility] WBC num/area UrnS HPF 1.0 per hpf Normal 4 0 - 4 [facility] Leukocyte esterase Ur Ql Strip Negative Normal 4 - [facility] Glucose Ur Strip-mCnc 0.0 mg/dL Normal 4 0 - 99 [facility] Ketones Ur Strip-mCnc Negative Normal 4 - [facility] RBC num/area UrnS HPF 1.0 per hpf Normal 4 0 - 4 [facility] Prot Ur Strip-mCnc Negative Normal 4 - [facility] Squamous num/area UrnS HPF 1.0 PER HPF Normal 4 [facility] Hgb Ur Ql Strip Negative Normal 4 - [facility] Bilirub Ur Strip-mCnc Negative Normal 4 - [facility] Nitrite Ur Ql Strip Negative Normal 11/11/19 2 4 - [facility] Color Ur Straw Normal 4 [facility] Clarity Ur Clear Normal 4 [facility] Heteroph Ab Ser Ql Positive Abnormal 4 - [facility] Globulin Ser Calc-mCnc 2.7 g/dL Normal 4 1.5 - 3.9 [facility] ALT SerPl-cCnc 9.0 U/L Below low normal 4 10 - 50 [facility] Prot SerPl-mCnc 7.4 g/dL Normal 4 6.3 - 8.3 [facility] ALP SerPl-cCnc 64.0 U/L Normal 4 32 - 122 [facility] Albumin/Glob SerPl 1.7 Ratio Normal 4 1 - 3 [facility] Bilirub Direct SerPl-mCnc <0.2 mg/dL Normal 4 0 - 0.2 [facility] AST SerPl-cCnc 23.0 U/L Normal 4 10 - 50 [facility] Bilirub SerPl-mCnc 0.5 mg/dL Normal 4 0.2 - 1 [facility] Albumin SerPl-mCnc 4.7 g/dL Normal 4 3.5 - 5 [facility] Sodium SerPl-sCnc 138.0 mmol/L Normal 4 136 - 145 [facility] BUN/Creat SerPl 16.0 Ratio Normal 4 10 - 25 [facility] Calcium SerPl-mCnc 9.1 mg/dL Normal 4 8.7 - 10.5 [facility] Potassium SerPl-sCnc 4.1 mmol/L Normal 4 3.4 - 5.3 [facility] Chloride SerPl-sCnc 102.0 mmol/L Normal 11/11/19 2 4 98 - 107 [facility] GFR/BSA.pred SerPlBld XKN-KCA-EbUXjj >90.0 Normal 4 59 - [facility] CO2 SerPl-sCnc 23.0 mmol/L Normal 4 22 - 33 [facility] Glucose SerPl-mCnc 91.0 mg/dL Normal 4 65 - 99 [facility] BUN SerPl-mCnc 11.0 mg/dL Normal 4 8 - 21 [facility] Creat SerPl-mCnc 0.7 mg/dL Normal 4 0.4 - 1.1 [facility] Anion Gap Bld-sCnc 13.0 Normal 4 7 - 17 [facility] Lipase SerPl-cCnc 26.0 U/L Normal 4 13 - 60 [facility] MCV RBC Auto 82.0 fL Normal 4 80 - 100 [facility] Eosinophil/leuk NFr Bld Auto 0.8 % Normal 4 [facility] Imm Granulocytes num Bld Auto 0.02 Thou/uL Normal 4 0 - 0.1 [facility] Monocytes/leuk NFr Bld Auto 7.3 % Normal 4 [facility] MCHC RBC Auto-mCnc 33.1 g/dL Normal 4 30 - 36 [facility] MCH RBC Qn Auto 27.1 pg Normal 4 26 - 34 [facility] WBC num Bld Auto 4.8 Thou/uL Normal 4 4 - 11 [facility] Hct VFr Bld Auto 36.3 % Normal 4 35 - 47 [facility] PMV Bld Auto 11.8 fL Normal 4 7.5 - 12.5 [facility] Platelet num Bld Auto 192.0 Thou/uL Normal 4 150 - 450 [facility] Eosinophil num Bld Auto 0.04 Thou/uL Normal 4 0 - 0.7 [facility] Hgb Bld-mCnc 12.0 g/dL Normal 4 11.7 - 15.7 [facility] Neutrophils num Bld Auto 2.21 Thou/uL Normal 4 2 - 7.5 [facility] Neutrophils/leuk NFr Bld Auto 46.2 % Normal 4 [facility] Basophils num Bld Auto 0.02 Thou/uL Normal 4 0 - 0.2 [facility] Lymphocytes/leuk NFr Bld Auto 44.9 % Normal 4 [facility] Imm Granulocytes/leuk NFr Bld Auto 0.4 % Normal 4 [facility] RBC num Bld Auto 4.42 Mil/uL Normal 4 4 - 5.4 [facility] Monocytes num Bld Auto 0.35 Thou/uL Normal 4 0.2 - 1.5 [facility] Lymphocytes num Bld Auto 2.15 Thou/uL Normal 4 1.5 - 4.5 [facility] Basophils/leuk NFr Bld Auto 0.4 % Normal 4 [facility] RDW RBC Auto-Rto 12.3 % Normal 4 11.5 - 14.5 [facility] CMV IgG SerPl EIA-aCnc <0.2 AI Normal 4 - 0.9 [facility] IgG, Serum 771.0 mg/dL Normal 4 600 - 1640 [facility] IgG2 Ser-mCnc 247.0 mg/dL Normal 4 241 - 700 [facility] IgG4 Ser-mCnc 2.6 mg/dL Below low normal 4 4 - 86 [facility] IgG3 Ser-mCnc 62.0 mg/dL Normal 4 22 - 178 [facility] IgG1 Ser-mCnc 427.0 mg/dL Normal 4 382 - 929 [facility] IgG SerPl-mCnc 836.0 mg/dL Normal 4 639 - 1349 [facility] IgM SerPl-mCnc 140.0 mg/dL Normal 4 56 - 357 [facility] IgE SerPl-aCnc 1.0 IU/mL Normal 4 - 115 [facility] IgA SerPl-mCnc 151.0 mg/dL Normal 4 70 - 410 [facility] TSH SerPl DL<=0.005 mIU/L-aCnc 1.13 mIU/L Normal 4 0.27 - 4.2 [facility] Nil 0.0 IU/mL Normal 4 [facility] Mitogen-Nil Response >10.0 IU/mL Normal 4 [facility] TB2-Nil Response <0.0 Normal 4 [facility] Interpretation Negative Normal 4 - [facility] TB1-Nil Response <0.0 Normal 4 [facility] CMV IgM Ser EIA-aCnc <0.2 AI Normal 4 - 0.9 [facility] PARVOVIRUS B-19 IGG AB 5.28 Above high normal 4 [facility] PARVOVIRUS B-19 IGM AB 0.29 Normal 4 [facility] B burgdor IgG Ser Ql IA NEGATIVE Normal 4 - [facility] GAMMA % 10.5 Normal 4 [facility] TOTAL PROTEIN 6.9 Normal 4 [facility] ALBUMIN % 67.3 Above high normal 4 [facility] ALPHA 1 % 3.8 Normal 4 [facility] ALPHA 2 G/DL 0.5 Normal 4 [facility] BETA G/DL 0.8 Normal 4 [facility] ALBUMIN G/DL 4.6 Normal 4 [facility] ALPHA 1 G/DL 0.3 Normal 4 [facility] ALPHA 2 % 7.5 Normal 4 [facility] BETA % 10.9 Normal 4 [facility] GAMMA G/DL 0.7 Normal 4 [facility] cCP IgG SerPl-aCnc 0.7 Normal 4 [facility] CK SERPL CCNC 42.0 U/L Normal 4 30 - 135 [facility] MICHELL SS-B IgG Ser IA-aCnc 0.8 Normal 4 [facility] MICHELL SEAM FELLER Ab Ser IA-aCnc 0.6 Normal 4 [facility] N gonorrhoea rRNA XXX Donr Ql PCR Negative Normal 4 - [facility] C trach rRNA XXX Ql DARIEN+probe Negative Normal 4 - [facility] E chaffeensis DNA Bld Ql DARIEN+probe Negative Normal 4 - [facility] A phagocytoph DNA Bld Ql PCR Negative Normal 4 - [facility] COMMENT FOR AENAA This test was developed and its performance characteristics determined by [facility]. It has not been cleared or approved by the Food and Drug Administration. Normal 4 [facility] Bab microti DNA Bld Ql PCR Negative Normal 4 - [facility] COMMENT FOR BABNAA This test was developed and its performance characteristics determined by [facility]. It has not been cleared or approved by the Food and Drug Administration. Normal 4 [facility] B burgdor IgG+IgM Ser EIA-Imp 0.17 EIA INDEX Normal 4 - 0.91 [facility] BUN SerPl-mCnc 12.0 mg/dL Normal 4 8 - 21 [facility] Chloride SerPl-sCnc 102.0 mmol/L Normal 09/19/19 2 4 98 - 107 [facility] AST SerPl-cCnc 19.0 U/L Normal 4 10 - 50 [facility] Glucose SerPl-mCnc 88.0 mg/dL Normal 4 65 - 99 [facility] ALP SerPl-cCnc 58.0 U/L Normal 4 32 - 122 [facility] Sodium SerPl-sCnc 137.0 mmol/L Normal 4 136 - 145 [facility] Globulin Ser Calc-mCnc 2.4 g/dL Normal 4 1.5 - 3.9 [facility] Anion Gap Bld-sCnc 11.0 Normal 4 7 - 17 [facility] Bilirub SerPl-mCnc 0.6 mg/dL Normal 4 0.2 - 1 [facility] Albumin/Glob SerPl 2.0 Ratio Normal 4 1 - 3 [facility] Potassium SerPl-sCnc 4.0 mmol/L Normal 4 3.4 - 5.3 [facility] Prot SerPl-mCnc 7.3 g/dL Normal 4 6.3 - 8.3 [facility] GFR/BSA.pred SerPlBld ECN-VCF-VaYRyp >90.0 Normal 4 59 - [facility] Calcium SerPl-mCnc 9.4 mg/dL Normal 4 8.7 - 10.5 [facility] ALT SerPl-cCnc 9.0 U/L Below low normal 4 10 - 50 [facility] BUN/Creat SerPl 17.0 Ratio Normal 4 10 - 25 [facility] Albumin SerPl-mCnc 4.9 g/dL Normal 4 3.5 - 5 [facility] Creat SerPl-mCnc 0.7 mg/dL Normal 4 0.4 - 1.1 [facility] CO2 SerPl-sCnc 24.0 mmol/L Normal 4 22 - 33 [facility] Neutrophils num Bld Auto 2.71 Thou/uL Normal 4 2 - 7.5 [facility] Lymphocytes/leuk NFr Bld Auto 38.2 % Normal 4 [facility] Neutrophils/leuk NFr Bld Auto 54.4 % Normal 4 [facility] Imm Granulocytes/leuk NFr Bld Auto 0.2 % Normal 4 [facility] MCHC RBC Auto-mCnc 33.2 g/dL Normal 4 30 - 36 [facility] Imm Granulocytes num Bld Auto 0.01 Thou/uL Normal 4 0 - 0.1 [facility] Basophils num Bld Auto 0.01 Thou/uL Normal 4 0 - 0.2 [facility] MCH RBC Qn Auto 27.8 pg Normal 4 26 - 34 [facility] RDW RBC Auto-Rto 12.8 % Normal 4 11.5 - 14.5 [facility] Platelet num Bld Auto 188.0 Thou/uL Normal 4 150 - 450 [facility] Monocytes num Bld Auto 0.32 Thou/uL Normal 4 0.2 - 1.5 [facility] Basophils/leuk NFr Bld Auto 0.2 % Normal 4 [facility] Hgb Bld-mCnc 12.0 g/dL Normal 4 11.7 - 15.7 [facility] WBC num Bld Auto 5.0 Thou/uL Normal 4 4 - 11 [facility] MCV RBC Auto 84.0 fL Normal 4 80 - 100 [facility] Lymphocytes num Bld Auto 1.9 Thou/uL Normal 4 1.5 - 4.5 [facility] Hct VFr Bld Auto 36.1 % Normal 4 35 - 47 [facility] PMV Bld Auto 11.9 fL Normal 4 7.5 - 12.5 [facility] Eosinophil num Bld Auto 0.03 Thou/uL Normal 4 0 - 0.7 [facility] RBC num Bld Auto 4.31 Mil/uL Normal 4 4 - 5.4 [facility] Monocytes/leuk NFr Bld Auto 6.4 % Normal 4 [facility] Eosinophil/leuk NFr Bld Auto 0.6 % Normal 4 [facility] Heteroph Ab Ser Ql Positive Abnormal 4 - [facility] Lipase SerPl-cCnc 20.0 U/L Normal 4 13 - 60 [facility] GFR/BSA.pred SerPlBld PAL-XDO-HkGArw >90.0 Normal 4 59 - [facility] Creat SerPl-mCnc 0.7 mg/dL Normal 4 0.4 - 1.1 [facility] AST SerPl-cCnc 18.0 U/L Normal 4 10 - 50 [facility] Calcium SerPl-mCnc 9.1 mg/dL Normal 4 8.7 - 10.5 [facility] Albumin/Glob SerPl 2.1 Ratio Normal 4 1 - 3 [facility] Potassium SerPl-sCnc 4.1 mmol/L Normal 4 3.4 - 5.3 [facility] Glucose SerPl-mCnc 83.0 mg/dL Normal 4 65 - 99 [facility] Chloride SerPl-sCnc 102.0 mmol/L Normal 08/10/19 2 4 98 - 107 [facility] Sodium SerPl-sCnc 137.0 mmol/L Normal 4 136 - 145 [facility] CO2 SerPl-sCnc 24.0 mmol/L Normal 4 22 - 33 [facility] BUN SerPl-mCnc 10.0 mg/dL Normal 4 8 - 21 [facility] ALP SerPl-cCnc 71.0 U/L Normal 4 32 - 122 [facility] ALT SerPl-cCnc 6.0 U/L Below low normal 4 10 - 50 [facility] Prot SerPl-mCnc 6.8 g/dL Normal 4 6.3 - 8.3 [facility] BUN/Creat SerPl 14.0 Ratio Normal 4 10 - 25 [facility] Anion Gap Bld-sCnc 11.0 Normal 4 7 - 17 [facility] Globulin Ser Calc-mCnc 2.2 g/dL Normal 4 1.5 - 3.9 [facility] Bilirub SerPl-mCnc 0.7 mg/dL Normal 4 0.2 - 1 [facility] Albumin SerPl-mCnc 4.6 g/dL Normal 4 3.5 - 5 [facility] Eosinophil num Bld Auto 0.03 Thou/uL Normal 4 0 - 0.7 [facility] Lymphocytes/leuk NFr Bld Auto 37.4 % Normal 4 [facility] Basophils/leuk NFr Bld Auto 0.2 % Normal 4 [facility] Neutrophils/leuk NFr Bld Auto 55.3 % Normal 4 [facility] RDW RBC Auto-Rto 12.4 % Normal 4 11.5 - 14.5 [facility] Lymphocytes num Bld Auto 2.04 Thou/uL Normal 4 1.5 - 4.5 [facility] Imm Granulocytes/leuk NFr Bld Auto 0.4 % Normal 4 [facility] Hct VFr Bld Auto 37.0 % Normal 4 35 - 47 [facility] WBC num Bld Auto 5.5 Thou/uL Normal 4 4 - 11 [facility] RBC num Bld Auto 4.41 Mil/uL Normal 4 4 - 5.4 [facility] Monocytes/leuk NFr Bld Auto 6.1 % Normal 4 [facility] Hgb Bld-mCnc 12.4 g/dL Normal 4 11.7 - 15.7 [facility] MCH RBC Qn Auto 28.1 pg Normal 4 26 - 34 [facility] Imm Granulocytes num Bld Auto 0.02 Thou/uL Normal 4 0 - 0.1 [facility] PMV Bld Auto 12.2 fL Normal 4 7.5 - 12.5 [facility] Eosinophil/leuk NFr Bld Auto 0.6 % Normal 4 [facility] Monocytes num Bld Auto 0.33 Thou/uL Normal 4 0.2 - 1.5 [facility] Neutrophils num Bld Auto 3.02 Thou/uL Normal 4 2 - 7.5 [facility] Basophils num Bld Auto 0.01 Thou/uL Normal 4 0 - 0.2 [facility] MCHC RBC Auto-mCnc 33.5 g/dL Normal 4 30 - 36 [facility] MCV RBC Auto 84.0 fL Normal 4 80 - 100 [facility] Platelet num Bld Auto 186.0 Thou/uL Normal 4 150 - 450 [facility] History of Medication Use Medication Directions Dispensed Refills Start Date End Date Status OMEprazole (PriLOSEC) 40 MG capsule Take 1 capsule (40 mg total) by mouth every morning before breakfast. Take atleast 1/2 hour before meal. 12/19/19 25 025 aborted OMEprazole (PriLOSEC) 40 MG capsule TAKE 1 CAPSULE BY MOUTH EVERY MORNING BEFORE BREAKFAST. TAKE ATLEAST 1/2 HOUR BEFORE MEAL. 12/19/19 25 active medroxyPROGESTERone (PROVERA) 5 MG tablet 10/15/19 25 active tranexamic acid (LYSTEDA) 650 MG Tab tablet Take 2 tablets (1,300 mg total) by mouth 3 (three) times a day. 09/25/19 25 active bisacodyl (DULCOLAX) 5 MG EC tablet Take 4 tablets (20 mg total) by mouth once. Take all 4 tablets 1 hour prior to starting to drink prep, on day prior to colonoscopy. 07/16/19 25 active ivazmv-uncpwawpd-baeyu sium sulfates (Suprep Bowel Prep Kit) 17.5-3.13-1.6 GM/177ML Solution solution Take two 177 mL bottles as directed 07/16/19 25 active iohexol (OMNIPAQUE) 350 mg/mL injection 100 mL 100 mL, Intravenous, Once in imaging, contrast, Starting on Mon07/03/24 at 1508, For 1 dose, Radiology Appointment 07/04/19 25 025 completed gadobutrol (GADAVIST) injection 7 mL 7 mL, Intravenous, Once in imaging, contrast, Starting on Mon06/21/24 at 1638, For 1 dose, Radiology Appointment 06/22/19 25 025 completed LORazepam (ATIVAN) 0.5 MG tablet Take 1 tab prior to procedure. July repeat x 1 if needed. 06/21/19 25 active oseltamivir (TAMIFLU) 75 MG capsule Take 1 capsule (75 mg total) by mouth 2 (two) times a day. 05/03/19 25 active methocarbamol (ROBAXIN) 500 MG tablet Take 1 tablet (500 mg total) by mouth 3 (three) times a day as needed for muscle spasms. 04/26/19 25 active lidocaine preservative free (XYLOCAINE-MPF) 2 % injection 5 mL 5 mL, Subcutaneous, Once, On Mon04/08/24 at 1000, For 1 dose 04/08/19 25 025 completed cyclobenzaprine (FLEXERIL) 10 MG tablet Take 1 tablet (10 mg total) by mouth 3 times daily (every 8 hours) as needed for muscle spasms. 04/03/19 25 active meloxicam (MOBIC) 15 MG tablet Take 1 tablet (15 mg total) by mouth daily. 04/03/19 25 active LORazepam (ATIVAN) 0.5 MG tablet Take 1 tablet (0.5 mg total) by mouth 2 times daily (every 12 hours) as needed for anxiety (anxiety due to nausea/vomiting). 04/02/19 25 active predniSONE (DELTASONE) 20 MG tablet Take 2 tablets (40 mg total) by mouth daily. 03/05/20 24 025 aborted albuterol (PROVENTIL HFA; VENTOLIN HFA) 108 (90 Base) MCG/ACT inhaler Inhale 2 puffs 4 times daily (every 6 hours) as needed for wheezing. 03/05/20 active VENTOLIN HFA 90 mcg/actuation HFA aerosol inhaler INHALE 2 PUFFS BY MOUTH EVERY 6 HOURS NEEDED FOR WHEEZE 03/05/20 active fluticasone (FloNASE) 50 mcg/spray nasal spray 2 sprays per nostril daily 01/31/20 active LORazepam (ATIVAN) 1 MG tablet Take 1 tablet one hour before MRI. No driving for remainder of day after taking medication. 01/26/20 active Magnesium 400 MG Tab 01/04 active Riboflavin 400 MG Tab 02/22 active Diclofenac Sodium 1 % GEL Apply 2 g topically 4 (four) times a day as needed. 12/26/19 active lidocaine (Lidoderm) 5 % Place 1 patch onto the skin every 12 (twelve) hours. Remove & Discard patch within 12 hours or as directed by 12/26/19 active methocarbamol (ROBAXIN) 500 MG tablet Take 1 tablet (500 mg total) by mouth 3 (three) times a day as needed. 12/26/19 active iohexol (OMNIPAQUE) 350 mg/mL injection 80 mL 80 mL, Intravenous, Once in imaging, contrast, Starting on Mon12/22/23 at 1031, For 1 dose, Radiology Appointment 12/22/19 completed methylPREDNISolone (MEDROL DOSEPAK) 4 MG tablet follow package directions. 12/05/19 active triamcinolone (KENALOG) 0.1 % cream Apply topically 2 (two) times a day. 12/05/19 aborted benzonatate (TESSALON) 200 MG capsule Take 1 capsule (200 mg total) by mouth 3 (three) times a day as needed for cough. 10/19/19 active doxycycline (VIBRAMYCIN) 100 MG capsule Take 1 capsule (100 mg total) by mouth 2 (two) times a day. 10/19/19 active celeCOXIB (CeleBREX) 200 MG capsule Take 1 capsule (200 mg total) by mouth 2 (two) times a day as needed for mild pain. 07/23/20 24 08/02/2 024 aborted gabapentin (NEURONTIN) 100 MG capsule Take 100 mg by mouth 3 (three) times a day. 09/20/19 24 024 active gabapentin (NEURONTIN) 100 mg capsule Take 1 capsule (100 mg total) by mouth 3 (three) times a day. 09/20/19 24 active gabapentin (NEURONTIN) 100 MG capsule Take 1 capsule (100 mg total) by mouth 3 (three) times a day. 09/20/19 24 active methocarbamoLTake 1 (oral) 3 times per day for 10 [id number] times per [id number] 50mg 08/05/19 24 active methocarbamol (ROBAXIN) 750 MG tablet Take 1 tablet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
--- OUTSIDE RECORDS SUMMARY | 2025-01-11 09:29 | XMS_ITS | Encounter Summary ---
Author Organization [facility] Address [address] [place] [address] Phone Care Team Providers Care Collection Card Clerk Name Role Phone Unavailable Primary Care Provider Unavailabl e Encounter Details Date Type Department Care Team (Late st Contact Info) Description 04/30/2009 Documentation EM Family Medicine [address], [place] [id number] Family Medicine, Physician [address] [place] [address] Social History Tobacco Use Types Packs/Day Years [...]
--- OUTSIDE RECORDS SUMMARY | 2025-01-11 09:29 | XMS_ITS | Encounter Summary ---
Author Organization [facility] Address [address] [place] [address] Care Team Providers Care Track Subway Repair Supervisor Name Role Phone Cony Guardado MD Unavailable Tanner Santiago MD Primary Care Provider [phone] Encounter Details Date Type Department Care Team (Late st Contact Info) Description 08/21/2023 Scanned Document [facility] [address] [place] [address] [place] [address] Cony Guardado MD [address] [place] [address] Social History Tobacco Use Types Packs/Day Years [...] Priority Date/Time Associated Diagnosis Comments PATHOLOGY REPORT 08/21/2023 12:0 0 AM EDT documented in this encounter Results * PATHOLOGY REPORT (08/21/2023 12:00 AM EDT) Cony Guardado MD PATHOLOGY/CYTOLOGY ORDERABLES Fi nal Result documented in this encounter Visit Diagnoses Not on filedocumented in this encounter Care Teams Track Subway Repair Supervisor Relationship Specialty Start Date End Date Tanner Santiago MD [address] [place] [phone] PCP - General Internal Medicine 08/18/23 Cony Guardado MD [address] [place] [phone] Gastroenterology 08/16/23 documented as of this encounter
--- OUTSIDE RECORDS SUMMARY | 2025-01-11 09:29 | XMS_ITS | Encounter Summary ---
Author Organization [facility] Address [address] [place] [address] Phone Care Team Providers Care Stock Sheets Cleaner Inspector Name Role Phone Unavailable Primary Care Provider Unavailabl e Encounter Details Date Type Department Care Team (Late st Contact Info) Description 07/23/2017 Conversion Encounter [facility] [address] [address] Social History Tobacco Use Types Packs/Day Years [...]
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
--- OUTSIDE RECORDS SUMMARY | 2025-01-11 09:29 | XMS_ITS | Data Portability ---
Author Organization [place] - [facility]'s [facility], [facility] Address [address] [place] [address] Care Team Providers Care Mortuary Technician Name Role Phone ADRIA MARTEBRODIE Primary Care Provider Assessment No assessment recorded. Plan of Treatment Reminders Order Date Submit Date Provider Last Modified By Organization Details Last Modified Time Details Appointments None recorded. Lab pap, IG + HPV 2024 025 [facility], [address] [place], [address] 5 11:04:03 test, urine 2024 025 In-Office Order, Internal Use Only DO Not Attach Compendium DO Not Attach Compendium, Do Not Delete/merge, [id number] 12:48:08 Referral None recorded. Procedures None recorded. Surgeries None recorded. Imaging None recorded. Medication Orders Lysteda 650 mg tablet 2024 025 [id number], [address] [place], [address], 5 10:44:39 Patient TargetsNo targets recorded. Patient Instructions Encounter Date Encounter Id Patient Instructions Last Modified By Organization Details Last Modified Time 08/08/2024 [id number] tips to help you stay healthy Not available 08/08/2024 10:53:34 Limited exam (Pt was bleeding too heavily) PAP/HPV at next visit BSE reviewed Followed by surgery for hx of bx on right AUB: long hx of frequent polyps Check pelvic USN Unexplained weight loss of 45# past year CT scan showed a small amount of free fluid Check pelvic USN Some GI findings on CT scan Plans f/u with GI RTC for PAP 20 minutes on AUB Not available 08/08/2024 13:19:57 08/19/2024 [id number] Pt here for PAP smear I was not able to do on 08/08/24 (annual) due to bleeding. Not available 08/19/2024 10:49:12 Reason for Referral None Reported. Results Created Date Observation Date Name Description Value Unit Range Abnormal Flag Note LastModifiedBy Organization Detail LastModifiedTime 08/09/1908/08/2024 pregn eyad test, urine Result negati ve Not Available In-Office Order Internal Use Only DO Not Attach Compendium DO Not Attach Compendium, Do Not Delete/merge, [id number] 08/08/2024 11:22:15 08/20/1908/19/2024 HPV MRNA E6/E7 HPV MRNA E6/E7 Negati ve negati ve APTIM A HPV assay detec ts 14 high risk HPV types (HPV 16,18 ,31,3 3,35, 39,45 ,51,5 2,56, 58,59 ,66,6 8). The assay is FDA appro gerald for testi ng ThinP rep liqui d Pap vials but not FDA appro gerald for detec ting HPV in SureP ath liqui d Pap speci mens. In-ho use valid ation has shown the assay can detec t all HPV types from this research [facility] cent[facility] e Not Available [facility] [address], [place], [address] 08/21/2024 11:04:00 08/20/1908/19/2024 THINP REP PAP TEST (IMAG ER), HPV SCREE N, REFLE X HPV 16,18 /45 report Report Final Gynec ologi will Cytol ogy Repor t ----- ----- ----- ----- ----- ----- ----- ----- ----- ----- ----- ----- ThinP rep Pap Test, HPV Scree n, Refle x HPV Genot ype SPECI MEN ADEQU ACY: SATIS FACTO RY FOR EVALU ATION ; ENDOC ERVIC AL/TR ANSFO RMATI ON ZONE COMPO NENT ABSEN T/INS UFFI IENT . INTER PRETA TION: NEGAT MARGARITO FOR INTRA EPITH ELIAL LESIO N OR LIBERTADYESIKA HOWARD . Elect antoniodonald hinojosaliana Dagmar d: Evan Conner, [place]( CP) ----- ----- ----- ----- ----- ----- ----- ----- ----- ----- ----- ----- CLINI WILL INFOR MATIO N: LMP: NG Clini will Histo ry: NG Biops y Date: NG Speci men Sourc e: Cervi x, Endoc ervix Previ ous Pap Date: NG HPV RESUL TS: HPV mRNA E6/E7 [id number] Appro gerald: 08/20 Negat margarito REF RANGE : Negat margarito CPT Codes : 05644 ICD Codes : Z12.4 Not Available [facility] [address] [place], [address] 08/21/2024 11:04:03 08/14/19 25 08/13/2024 US, trans vagin al RAD [facility] [employer] [facility] [id number] 08/16/2024 10:37:24 08/21/[address], abdom en + pelvi s, w/ contr ast No observ ation record ed. fhuric Not Available 2024 09:08:25 Result Notes None recorded. Problems Name Problem SNOMED Code Status Onset Date Resolution Date Notes Provider Name and Address Organization Details Recorded Time Prolonged QT interval 150742733 Active 2024 CALI ANDRADE MD [address] [place] [address], [address] [place] [address], [phone], [facility] 5 12:40:40 Acquired von Willebrand disease 028523119 Active 2024 CALI ANDRADE MD [address] [facility], [address] [place] [address], [phone] , [facility] 5 12:40:52 History of asthma 504028257 Active 2024 CALI ANDRADE MD [address], [place], [address], [facility] 5 12:41:03 Endometriosis (clinical) 417802152 Active 2024 CALI ANDRADE MD [address], [place], [address], [facility] 5 12:41:17 Polycystic ovary syndrome 533568272 Active 2024 CALI ANDRADE MD [address], [place], [address], [facility] 5 12:41:25 Female infertility 1107650 Active 2024 CALI ANDRADE MD [address], [place], [address], [facility] 12:43:26 Problem Notes None recorded. Procedures Surgical History Date Name Laterality Status Provider Name and Address Organization Details Recorded Time 08/20/19 25 Date of Last Pap Smear completed CALI ANDRADE MD [address], [place], [address], [facility] 08/21/2024 12:30:19 08/15/19 25 Date of Last Colonoscopy completed CALI ANRDADE MD [address], [place], [address], [facility] 08/16/2024 10:37:11 appendectomy completed CALI ANDRADE MD [address], [place], [address], [facility] 08/08/2024 12:45:02 cholecystectomy completed CALI ANDRADE MD [address], [place], [address], [facility] 08/08/2024 12:45:10 Laparoscopy completed CALI ANDRADE MD [address], [place], [address], [facility] 08/08/2024 12:45:33 dilation and curettage completed CALI ANDRADE MD [address] [facility], [address], [place], [address], [facility] 08/08/2024 12:46:04 Imaging Results None recorded. Procedure Notes None recorded. Medical Equipment None Reported. Allergies No known drug allergies Medications Name Sig Start Date Stop Date Status Note LastModified by Organization Details LastModified Time methocarbam ol 500 mg tablet TAKE 1 TABLET BY MOUTH 3 TIMES A DAY NEEDED. 08/08 completed Not Available Not Available Not Available terconazole 0.4 % vaginal cream 08/08 completed Not Available Not Available Not Available doxycycline hyclate 100 mg capsule TAKE 1 CAPSULE BY MOUTH TWICE A DAY 08/08 completed Not Available Not Available Not Available clindamycin HCl 300 mg capsule 08/08 completed Not Available Not Available Not Available azithromyci n 250 mg tablet 08/08 completed Not Available Not Available Not Available ibuprofen 800 mg tablet 08/08 completed Not Available Not Available Not Available benzonatate 200 mg capsule TAKE 1 CAPSULE BY MOUTH THREE TIMES A DAY NEEDED FOR COUGH 08/08 completed Not Available Not Available Not Available phenazopyri dine 200 mg tablet 08/08 completed Not Available Not Available Not Available sumatriptan 25 mg tablet 08/08 completed Not Available Not Available Not Available prednisone 20 mg tablet TAKE 2 TABLETS (40 MG TOTAL) BY MOUTH DAILY. 08/08 completed Not Available Not Available Not Available medroxyprog esterone 5 mg tablet TAKE 1 TABLET BY MOUTH TWICE A DAY 2024 active Not Available Not Available Not Avai lable prednisone 5 mg tablet 08/08 completed Not Available Not Available Not Available metronidazo le 500 mg tablet 08/08 completed Not Available Not Available Not Available ciprofloxac in 250 mg tablet 08/08 completed Not Available Not Available Not Available ciprofloxac in 500 mg tablet 08/08 completed Not Available Not Available Not Available sulfamethox azole 800 mg-trimetho prim 160 mg tablet 08/08 completed Not Available Not Available Not Available tramadol 50 mg tablet 08/08 completed Not Available Not Available Not Available triamcinolo ne acetonide 0.1 % topical cream APPLY TOPICALLY TO THE AFFECTED AREA TWICE DAILY 08/08 completed Not Available Not Available Not Available oxycodone-a cetaminophe n 5 mg-325 mg tablet 08/08 completed Not Available Not Available Not Available lorazepam 0.5 mg tablet TAKE 1 TAB PRIOR TO PROCEDURE . MAY REPEAT X 1 IF NEEDED. 08/08 completed Not Available Not Available Not Available estradiol 1 mg tablet 08/08 completed Not Available Not Available Not Available benzonatate 100 mg capsule 08/08 completed Not Available Not Available Not Available oseltamivir 75 mg capsule TAKE 1 CAPSULE BY MOUTH TWICE A DAY 08/08 completed Not Available Not Available Not Available sertraline 25 mg tablet 08/08 completed Not Available Not Available Not Available budesonide 0.5 mg/2 mL suspension for nebulizatio n active Not Available Not Available Not Available gabapentin 100 mg capsule TAKE 1 CAPSULE BY MOUTH THREE TIMES A DAY 08/08 completed Not Available Not Available Not Available lorazepam 1 mg tablet TAKE 1 TABLET ONE HOUR BEFORE MRI. NO DRIVING FOR REMAINDER OF DAY AFTER TAKING MEDICATIO N. 08/08 completed Not Available Not Available Not Available methylpredn isolone 4 mg tablets in a dose pack FOLLOW PACKAGE DIRECTION S 08/08 completed Not Available Not Available Not Available doxycycline hyclate 100 mg tablet 08/08 completed Not Available Not Available Not Available ipratropium bromide 21 mcg (0.03 %) nasal spray 08/08 completed Not Available Not Available Not Available naproxen 500 mg tablet 08/08 completed Not Available Not Available Not Available Ventolin HFA 90 mcg/actuati on aerosol inhaler INHALE 2 PUFFS BY MOUTH EVERY 6 HOURS NEEDED FOR WHEEZE active Not Available Not Available No t Available oxycodone 5 mg tablet 08/08 completed Not Available Not Available Not Available Laxative (bisacodyl) 5 mg tablet,william yed release PLEASE SEE ATTACHED FOR DETAILED DIRECTION S active Not Available Not Available No t Available June03/25 (21) 1 mg-20 mcg tablet 08/08 completed Not Available Not Available Not Available Flovent HFA 110 mcg/actuati on aerosol inhaler 08/08 completed Not Available Not Available Not Available chlorhexidi ne gluconate 0.12 % mouthwash 08/08 completed Not Available Not Available Not Available Symbicort 160 mcg-4.5 mcg/actuati on HFA aerosol inhaler active Not Available Not Available Not Available tranexamic acid 650 mg tablet TAKE 2 TABLETS BY MOUTH 3 TIMES A DAY FOR 5 DAYS active Not Available Not Available No t Available Suprep Bowel Prep Kit 17.5 gram-3.13 gram-1.6 gram oral solution TAKE DIRECTED 08/08 completed Not Available Not Available Not Available Narcan 4 mg/actuatio n nasal spray 08/08 completed Not Available Not Available Not Available Vitals Date Recorded Body height Body mass index (BMI) Body weight Systolic And Diastolic Provider Name and Address Organization Details Last Updated DateTime 08/08/2024 165.1 cm 25 kg/m2 01031.86 g 116/84 mm[Hg] [facility] 08/08/2024 10:43:30 Date Recorded Body height Body mass index (BMI) Body weight Systolic And Diastolic Provider Name and Address Organization Details Last Updated DateTime 08/19/2024 165.1 cm 25 kg/m2 89251.86 g 110/70 mm[Hg] [facility] 08/19/2024 10:39:25 Social History None recorded. 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 Family History Relationship Description Onset Age of this Age Resolved Age Notes LastModified by Organization Details LastModified Time Paternal Grandmother Malignant neoplasm of esophagus Siglet cells, Gi source , not exactl y sure of locati on Not available 08/08/2024 12:44:33 Medical History Condition Response Asthma Y Gynecological History Statement/Question Response Current Control Method None Date of Last Pap Smear 08/19/2024 Date of Last Mammogram Date of Last Colonoscopy 08/14/2024 IPV Screen Done 08/08/2024 Obstetrics History GPAL:G 4 P 1 0 3 0 Type Value Full Term 1 Spontaneous 3 Total 4 Past Encounters Encounter ID Performer Location Encounter Start Date Encounter Closed Date Diagnosis/Indication Diagnosis SNOMED-CT Code Diagnosis ICD10 Code Diagnosis IMO Codes Diagnosis Note [id number] CALI ANDRADE MD [facility] [address] [facility] [address] [place] [address] 08/08/2024 10:32:57 08/08/2024 11:14:14 Gynecologic examination 79941131 Z01.234 4228632 Pain in pelvis 26994354 R10.2 11695 Abnormal u terine bleeding 2393414410 9100 N93.9 [id number] CALI ANDRADE MD [facility] [place] [address] 08/19/2024 10:37:10 08/19/2024 10:52:04 Abnormal uterine bleeding 6489226595 9100 N93.9 60743680 Cancer cer vix screening status 803880928 Z12.4 001423 Health Concerns Section Related Observation LastModified by Organization Detai ls LastModified Time None Recorded Concern Status LastModified by Organization Details LastModified Time None Recorded Advance Directives Directive None Recorded Payers Insurance Date Sequence Insurance Name Policy Number Policy Ag Covered Member ID Ag Member ID Guarantor Name 07/08/[address] [place] [address] Ashlie Chávez [id number] Ashlie Chávez 08/05/2024 1 [place] A Ashlie Chávez [id number] Ashlie Chávez Notes Date Note Type Note Provider Name and Address Organization Details Recorded Time 08/09/19 25 text/htm l [facility] Annual GYNReported by PatientGenitourinary symptomsFor menstrual cycle, patient reportsmenorrhagiaandbleeding lasts more than 7 days. For urinary symptoms, patient reportsno hematuriaandno incontinence. For vulva, patient reportsno genital lesion. For vagina, patient reportsnormal vaginal discharge.Breast symptomsFor breast, patient reportsno breast pain,no breast lump, andno nipple discharge.Endocrine symptomsFor sexual activity, patient reportsno sexual complaints,no pain during intercourse,normal libido, andsexually active yes __. For menopausal symptoms, patient reportsno menopausal symptomsandnormal vaginal lubrication.Psychological symptomsFor psychological symptoms, patient reportsno depression,no anxiety, andno pmdd. Pt here for annual (it has been about 3 years). She is also here due to recent CT scan that shows some GI findings (colitis) and a small amount of free fluid. She had the CT scan due to a 45# unexplained weight loss in past year. So, far, evaluation is negative.She would like to have another baby but conceived with fertility specialists and is in the middle of this evaluation, so waiting for now. Menses are extremely heavy and she has had polyps in past and had at least 4 D&C's.RIGHT breast bx 2 years ago, benign, followed by surgery CALI ANDRADE MD [address] [place] [address], [address] [place] [address], [phone], [facility] 08/08/2024 13:20:43 08/20/19 25 text/htm l Pt here for PAP, was bleeding too heavily at annual CALI ANDRADE MD [address] [facility], [address] [place] [address], [phone], [facility] 08/19/2024 10:49:36 OBGyn Episode No OBEpisode recorded.
--- OUTSIDE RECORDS SUMMARY | 2025-01-11 09:29 | XMS_ITS | Patient Health Record ---
Author Organization [employer] [facility] Address [address] [address] Care Team Providers Care Security Associate Name Role Phone Trace (RETIRED) Be RODRIGUEZ Primary Care Provide Lola Olvera Unavailable [phone] Allergies Allergen (clinical drug ingredient) Drug/Non Drug Allergy documented on EMR Reaction Allergy Type Onset Date Status miconazole Antifungal change in heart rhythm Drug Allergy Active diphenhydramine Antihistamine change in heart rhythm Drug Allergy Active amoxicillin / clavulanate Augmentin Rash Drug Allergy Active Decongestant change in heart rhythm Drug Allergy Active erythromycin Erythromycin change in heart rhythm Drug Allergy Active morphine Morphine Sulfate change in heart rhythm Drug Allergy Active promethazine Phenergan change in heart rhythm Drug Allergy Active Penicillin Rash Drug Allergy Active Reason For Referral No Information Medications Medication SIG (Take, Route, Fr equency, Duration) Notes Start Date End Date Status Lysteda 650 MG 2 tablets [address] ee times a day for 3d, but if bleeding continues to be heavy, for up to 5d; Duration: 5 days 05/11/2016 Not-Taking Albuterol Active Ponstel 250 MG 1 capsule with food or milk Orally every 6 hrs PRN; Duration: 7 days 08/11/2016 Active Aygestin 5 MG day 1: 1 tab q4h; da y 2: 1 tab q6h; day 3: 1 tab q8h; day 4: 1 tab q12 h, day 5-19: 1 tab qd x 2w Orally qd; Duration: 19 days 08/09/2016 Active Zofran 4 MG 2 tablets Orally KATHRYN RY 8 HOURS PRN; Duration: 30 day(s) 08/11/2016 Active Social History Sexual History Question Answer Notes Had sex in the past 12 months (vaginal, oral, or anal)? Yes with Men only Prevention strategies discussed: Other Problems Problem Type SNOMED Code ICD Code Onset Dates Problem Status W/U Status Risk Notes Problem Uncomplicated asthma (disorder) (767070064) Unspecified asthma, uncomplicated (J45.909) Active confirmed Problem Intermenstrual bleeding - irregular (79714126) Excessive and frequent menstruation with irregular cycle (N92.1) Active confirmed Problem Irregular Menstruation (69339416) Other specified irregular menstruation (N92.5) Active confirmed Problem Dysmenorrhea (044263965) Dysmenorrhea, unspecified (N94.6) Active confirmed Plan Of Treatment Pending Test Test Name Order Date Ultrasound : Sono Hystergram 03/25/2016 1,25OH VITAMIN D 03/25/2016 ANTI-HEPATITIS C 03/20/2015 HCG PLUS BETA 04/22/2015 HIV 1/HIV 2 AB 03/20/2015 HSV 2 IGG AB 03/20/2015 SYPHILIS TESTING 03/20/2015 Insurance Providers Payer Name Payer Address Payer Phone Subscriber Number Group Number Insured Name Patient Relationship to Insured Coverage Start Date Coverage End Date [facility] [address] [place] [address] [id number] GILLIAN CRUZ Self - patient is the insured Medical (General) History Medical History History ICD Code Unspecified asthma, uncomplicated J45.90 9 Other specified irregular menstruation N 92.5 Female infertility, unspecified N97.9 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
--- OUTSIDE RECORDS SUMMARY | 2025-01-11 09:30 | XMS_ITS | Clinical Summary ---
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 Phone Unavailable Primary Care Provider Unavailabl e Immunizations Immunization Administration Dates Next Due DTaP 06/05/1998, 5,1993,08/11,1993 H1N1 04/30/2009 HPV, Quadrivalent 09/18/2008,12/22/2007,09/11/19 08 Hep B, ped/adol 1993,1993 Hib (PRP-T) 07/12/1994, 4,1993,06/09 IPV 06/05/1998, 5,1993,06/09 Influenza 12/19/2006,07/28/2003 Influenza, injectable, quadrivalent 12/07/2010,1 ,12/22/2007 MMR 06/05/1998,07/12/1994 Meningococcal Conj (Menactra) MCV4P 09/11/2007 Td (adult) (Tenivac), 5 Lf t etanus toxoid, PF, adsorbed 06/26/2003 Tdap 09/18/2008 Varicella 03/06/1997 Family History Relation Name Status Comments Father heart disease Mother hx of eating di sorder Social History Tobacco Use Types Packs/Day Years Used Date Smoking Tobacco: Never Assessed Comments Unknown Sex and Gender Information Value Date Recorded Sex Assigned at Not on file Legal Sex Female 6:09 PM EDT Gender Identity Not on file Sexual Orientation Not on file Last Filed Vital Signs Vital Sign Reading Time Taken Comments Blood Pressure 110/62 03/17/2011 12:00 AM EST Pulse 105 03/17/2011 12:00 AM EST Temperature 37.1 C (98.7 F) 03/17/2011 12:00 AM EST Respiratory Rate - - Oxygen Saturation 99% 03/17/2011 12:00 AM EST Inhaled Oxygen Concentration - - Weight 51.4 kg (113 lb 6.4 oz) 03/17/2011 12:00 AM EST Height 163.8 cm (5' 4.5 ) 03/17/2011 12:00 AM ES T Body Mass Index 19.16 03/17/2011 12:00 AM EST Plan of Treatment Health Maintenance Due Date Last Done Comments Hepatitis B Vaccines (3 of 3 - 3-dose series) 1993 1993, 1993 Varicella Vaccines (2 of 2 - 2-dose childhood series) 07/03/1998 03/06/1997 DTaP,Tdap,and Td Vaccines (7 - Td or Tdap) 09/18/2018 09/18/2008, 06/26/2003, 06/05/1998, Additional history exists Influenza Vaccines (#1) 2024 12/08/19 11, 12/10/2009, 12/22/2007, Additional history exists COVID-19 Vaccine (2024- season) 2024 HIB Vaccines Completed 07/12/1994, 09/04, 1993, Additional history exists IPV Vaccines Completed 06/05/1998, 10/04, 1993, Additional history exists MMR Vaccines Completed 06/05/1998, 07/12/1994 Meningococcal Vaccine Aged Out 09/11/2007 No kerri mk eligible based on patient's age to complete this topic HPV Vaccines Completed 09/18/2008, 12/04, 09/11/2007 Hepatitis A Vaccines Aged Out No long er eligible based on patient's age to complete this topic Men B Vaccine Aged Out No longer elig ible based on patient's age to complete this topic Pneumococcal Vaccine Aged Out No long er eligible based on patient's age to complete this topic
[2025-01-11 09:59] VITALS: BP 118/72; PULSE 83; TEMP 36.8; O2SAT 97
--- NOTE | 2025-01-11 09:59 | AM.OFFWIN_ITS ---
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 Intake Note: pt is here for lf abd pain, upper location, ongoing for a few months Allergies morphine (MORPHINE) Allergy (Severe, Verified 01/11/25 11:37) THROAT CLOSES amoxicillin (From AUGMENTIN) Allergy (Unknown, Verified 01/11/25 11:37) RASH clavulanic acid (From AUGMENTIN) Allergy (Unknown, Verified 01/11/25 11:37) RASH penicillin V Allergy (Unknown, Verified 01/11/25 11:37) Unknown Penicillins (PENICILLINS) Allergy (Unknown, Verified 01/11/25 11:37) RASH tolnaftate Allergy (Unknown, Verified 01/11/25 11:37) Unknown prochlorperazine (From COMPAZINE) Adverse Reaction (Severe, Verified 01/11/25 11:37) LOSS CONTROL OF MOVEMENTS promethazine (From PHENERGAN) Adverse Reaction (Severe, Verified 01/11/25 11:37) LOSS CONTROL OF MOVEMENTS Antifungal - Imidazole (ANTIFUNGAL - IMIDAZOLE) Adverse Reaction (Unknown, Verified 01/11/25 11:37) PROLONGED QT Macrolide Antibiotics (MACROLIDE ANTIBIOTICS) Adverse Reaction (Unknown, Verified 01/11/25 11:37) PROLONGED Q-T Antihistamine Allergy (Unknown, Uncoded 01/11/25 10:01) Unknown ANTIHISTAMINES Allergy (Unknown, Uncoded 11/21/19 17:31) PROLONGED Q-T Decongestant Allergy (Unknown, Uncoded 01/11/25 10:01) Unknown DECONGESTANTS Allergy (Unknown, Uncoded 01/11/25 10:01) PROLONGED Q-T Do you need a note to return to daycare/school/sports/work: No HPI HPI Comments History of Present Illness Details This is a 29-year-old female who presets to the walk-in clinic complaining of LUQ abdominal pain, radiates into the right upper quadrant x 2 months. Patient states she has had this in the past but it has never lasted this long. She has had an endoscopy about 2 years ago, which was normal as well as a colonoscopy within the past 1 year, which showed 2 polyps but was otherwise normal. She has a history of of cholecystectomy s/p abnormal HIDA scan as well as a x of appendectomy. She describes the pain as a fullness feeling. She states the pain is pretty much constant but exacerbated with eating/drinking just a few bites/sips and exacerbated by any movement. She reports occasionally feeling nauseated but denies any vomiting, diarrhea, or constipation. She reports having two bowel movements a day, which are normal in consistency and color but she has noticed mucus as well as occasional bright red blood mixed in with the mucus. She denies any urinary symptoms such as dysuria, hematuria, urinary frequency, or urinary urgency. She deniesi any vaginal bleeding or discharge. She denies alcohol use. She was seen in the emergency room at [facility] about 1 month ago and had normal labs and she was diagnosed with gastritis and started on omeprazole, which didn't gelp. She also reports a history of mono with splenomegaly and states that she had similar abdominal pain at that time. She reports fatigue, which she attributes to dehydration and decreased oral intake but denies any sore throat or fevers/chills. She denies any trauma to the area. Review of Systems Const All systems reviewed & are unremarkable except as noted in HPI and below Reports no additional complaints Eyes Reports no additional complaints ENT Reports no additional complaints Card Reports no additional complaints Resp Reports no additional complaints GI Reports no additional complaints Reports no additional complaints Musc Reports no additional complaints Skin/Breast Reports system reviewed and no additional complaints, except as documented Neuro Reports no additional complaints Psych Reports no additional complaints Endo Reports no additional complaints Ruddy/Lymph Reports no additional complaints Aller/Immun Reports no additional complaints Physical Exam Exam Exam: Vital signs reviewed. Constitutional: She appears uncomfortable but otherwise non-toxic appearing. No acute distress. Well-developed and well-nourished. HEENT: Normocephalic and atraumatic. PERRL/EOMI. Dry mucous membranes. Skin: Warm and dry. No rashes or lesions noted. Neck: Full and painless range of motion. No cervical lymphadenopathy. Cardio: Regular rate and rhythm. No murmurs, gallops, or rubs. No lower extremity edema. No JVD. Pulmonary: No respiratory distress. No accessory muscle usage. Clear to auscultation bilaterally without wheezing, crackles, or rhonchi. Gastrointestinal: + Tenderness to palpation in the left upper quadrant > epigastric region > right upper quadrant. Her abdomen is soft and non-distended. She has normoactive bowel sounds in all 4 quadrants. Musculoskeletal: Normal range of motion in joints throughout the body. No deformity or other signs of injury. Neuro: Alert and oriented x4. Cranial nerves 2-12 grossly intact. No focal deficits appreciated. Psych: Normal mood and affect. Vital Signs: Last Vital Signs Temp 98.2 F 01/11/25 09:59 Pulse 83 01/11/25 09:59 BP 118/72 01/11/25 09:59 Pulse Ox 97 01/11/25 09:59 Oxygen Delivery Method Room Air 01/11/25 09:59 Assessment & Plan Assessment & Plan (1) Left upper quadrant abdominal pain: Code(s): R10.12 - Left upper quadrant pain Plan 29-year-old female who presets to the walk-in clinic complaining of LUQ abdominal pain, radiates into the right upper quadrant x 2 months. On physical examination, patient has significant tenderness to palpation of the left upper quadrant greater than epigastric region greater than right upper quadrant and patient has been unable to tolerate oral intake due to pain. Differential diagnoses includes peptic ulcer disease including perforation versus gastritis versus pancreatitis less likely. Given patient's pain as well as inability to tolerate oral intake, I recommended patient proceed to the emergency room for further evaluation and management such as IV fluids, IV antiemetics, and IV antacids. I called [facility] Emergency room and spoke with Xi and discussed patient's history, physical exam, as well as my recommendations for evaluation/management. Patient will be driving herself to the emergency room for further treatment. She was encouraged to follow up with her primary care physician as well as to make an appointment with her GI as an outpatient, as well. Coding Level of Care Code New Pt Level 3 (66006) Diagnoses Left upper quadrant abdominal pain R10.12
== END 2025-01-11 11:04 | disposition home or self-care (01) ==
LOC: HO.HMCWIC 09:26
PROVIDERS: PCP Physician Assistant; Visit Provider Physician Assistant Medical
DX: R10.12 Left upper quadrant pain (principal)

== ENCOUNTER 2025-01-11 11:17 | Emergency (ER) | payer BC, SELFPAY ==
--- NOTE | ~2025-01-11 | CT_ITS ---
CLINICAL HISTORY: Left sided abd alicia (LUQ) Exam: Nonenhanced CT abdomen and pelvis with multiplanar reformats. Comparison: None. Findings: CT abdomen: Lung bases are clear. Liver is free of gross focal lesions and ductal dilatation. Gallbladder is absent. Spleen appears unremarkable. Pancreas and adrenal glands appear unremarkable. Kidneys appear unremarkable. No free intraperitoneal fluid or retroperitoneal masses or adenopathy. Abdominal aorta is normal caliber. Bowel loops reveal no abnormal wall thickening or distention. Minimal colonic diverticulosis is present, without CT evidence of diverticulitis. Appendix appears to be surgically absent. No CT evidence of appendicitis. CT pelvis: Trace amount of free pelvic fluid is likely physiologic. Uterus and adnexal structures appear unremarkable. Urinary bladder is free of gross filling defects. No pelvic masses or adenopathy. Osseous structures reveal no destructive osseous lesions. Impression: 1. No acute abnormality or CT explanation for reported history of left-sided pain. Specifically, no urolithiasis or hydroureteronephrosis. This document has been electronically signed by: Dwayne Donohue MD on 01/11/2025 15:49:38
[2025-01-11 11:36] VITALS: BP 109/69; PULSE 86; RESP 18; TEMP 36.7; O2SAT 99; BMI 27.7
[2025-01-11 12:11] LABS: MANUAL DIFF FLAG NO
[2025-01-11 12:12] LABS: Hematocrit 37.3 % (37.0-47.0); Hemoglobin 12.5 g/dl (12.0-16.0); Imm Gran Abs Auto 0.03 X10*3/uL (0.00-0.03); Imm Gran Pct Auto 0.5 % (0.0-0.4); Lymphocytes Absolute Auto 1.7 X10*3/uL (1.2-4.9); Mean Corpuscular HGB Conc 33.5 g/dl (31.0-35.0); Mean Corpuscular Hemoglobin 27.5 pg (27.0-33.0); Mean Corpuscular Volume 82.0 fL (80.0-98.0); NRBC Abs Auto 0.000 X10*3/uL (0.0-0.012); NRBC Pct Auto 0.0 /100WBC (0.0-0.2); Platelet Count 205 X10*3/uL (160-400); Red Blood Count 4.55 X10*6/uL (4.20-5.50); White Blood Count 5.9 X10*3/uL (4.8-10.8)
[2025-01-11 12:14] LABS: Appearance Urine Clear; Glucose Urine UA Negative (Negative); PH 7.0 (5.0-9.0); Specific Gravity - Urine 1.020 (1.005-1.025)
[2025-01-11 12:15] LABS: UPreg QC Valid YES
[2025-01-11 12:25] LABS: Alanine Aminotransferase 15 U/L (0-31); Albumin Level 4.9 g/dL (3.5-5.0); Alkaline Phosphatase 59 U/L (39-117); Aspartate Amino Transferase 24 U/L (5-31); Total Protein 7.0 g/dL (6.5-8.0)
[2025-01-11 12:26] LABS: Alanine Aminotransferase 12 U/L (0-31); Albumin Level 4.8 g/dL (3.5-5.0); Alkaline Phosphatase 58 U/L (39-117); Anion Gap 12 (12-20); Aspartate Amino Transferase 18 U/L (5-31); Blood Urea Nitrogen 16 mg/dL (9-16); Calcium 8.7 mg/dL (8.4-10.2); Carbon Dioxide 22 mmol/L (22-29); Chloride 108 mmol/L (96-108); Creatinine Clr Calc Pharmacy 121.9; Estimated Glomerular Filt Rate > 60; Lipase 16 U/L (8-78); Potassium 4.2 mmol/L (3.3-5.1); Sodium 138 mmol/L (135-145); Total Protein 7.0 g/dL (6.5-8.0)
--- NOTE | 2025-01-11 12:51 | ED_ITS ---
HPI - General Adult General Chief complaint: Abdominal Pain Stated complaint: abd pain Time Seen by Provider: 01/11/25 13:47 History of Present Illness HPI narrative: Patient is a 29-year-old female presents today with a having left upper quadrant pain ongoing for the last 2 months. Worse with eating. Had mono previously. No coughing or congestion today. Symptoms improving. No diaphoresis. Related Data Home Medications ?Medication ?Instructions ?Recorded ?Confirmed No Known Home Meds 01/11/25 Allergies Allergy/AdvReac Type Severity Reaction Status Date / Time morphine (MORPHINE) Allergy Severe THROAT Verified 01/11/25 11:37 CLOSES amoxicillin (From AUGMENTIN) Allergy Unknown RASH Verified 01/11/25 11:37 clavulanic acid (From Allergy Unknown RASH Verified 01/11/25 11:37 AUGMENTIN) penicillin V Allergy Unknown Unknown Verified 01/11/25 11:37 Penicillins (PENICILLINS) Allergy Unknown RASH Verified 01/11/25 11:37 tolnaftate Allergy Unknown Unknown Verified 01/11/25 11:37 prochlorperazine (From AdvReac Severe LOSS Verified 01/11/25 11:37 COMPAZINE) CONTROL OF MOVEMENTS promethazine (From PHENERGAN) AdvReac Severe LOSS Verified 01/11/25 11:37 CONTROL OF MOVEMENTS Antifungal - Imidazole AdvReac Unknown PROLONGED Verified 01/11/25 11:37 (ANTIFUNGAL - IMIDAZOLE) QT Macrolide Antibiotics AdvReac Unknown PROLONGED Verified 01/11/25 11:37 (MACROLIDE ANTIBIOTICS) Q-T Antihistamine Allergy Unknown Unknown Uncoded 01/11/25 10:01 ANTIHISTAMINES Allergy Unknown PROLONGED Uncoded 11/21/19 17:31 Q-T Decongestant Allergy Unknown Unknown Uncoded 01/11/25 10:01 DECONGESTANTS Allergy Unknown PROLONGED Uncoded 01/11/25 10:01 Q-T Review of Systems 2 Review of Systems: Positive abdominal pain in the left upper quadrant no flank pain. No pain on urination. Does not think she is PMFSH Past Medical History Attestation statement: The following information was validated with the patient. Social History Social History Smoked in Last 30 Days: No Use of substances other than those prescribed or required for medical reasons: No Advance Directives: No Advance Directives Information Provided: No Patient : No Physical Exam ED Exam Exam: Appearance: Alert. Oriented X3. No acute distress. Eyes: Pupils equal, round and reactive to light. ENT: Pharynx normal. Neck: Normal inspection. Neck supple. No lymph nodes noted. No crepitus CVS: Normal heart rate and rhythm. Pulses normal. Normal S1 and S2 Respiratory: No respiratory distress. Breath sounds normal. No Wheezing. No rales Abdomen: Soft and nontender. No rigidity. No distention. good BS x4 Skin: Skin warm and dry. Normal skin color. Normal skin turgor. Extremities: No lower extremity edema. Neurovascular intact to all extremities. No Lacerations. No Rash Neuro: Oriented X 3. No motor deficit. No sensory deficit. Moving all extermities. No slurred speech Vital Signs: Vital Signs - 24 hr 01/11/25 11:36 01/11/25 13:48 01/11/25 14:50 Temperature 98.0 F 98.4 F 98.8 F Pulse Rate 86 80 84 Respiratory Rate 18 16 Blood Pressure 109/69 110/65 105/68 Pulse Oximetry 99 100 100 Oxygen Delivery Method Room Air Room Air Room Air BMI result Body Mass Index 27.7 Course Course Course Narrative: This is an RME done by DEVIN Dangelo: Additional HPI, ROS, PE not included below will be deferred to primary provider. 29 yo f presents from w/ severe LUQ pain w/ nausea and anorexia x months worsening. Pain now constant. told her to come in today for eval. No hx of trauma or stones. No changes in urinary or bowel habits. Denies concerns for plan- labs, imaging, Medications Administered Discontinued Medications Generic Name Dose Route Start Last Admin Trade Name Percyq PRN Reason Stop Dose Admin Al Hydroxide/Mg Hydroxide 30 ml 01/11/25 13:54 01/11/25 14:55 Magnesium Hydrox/Alum Hydrox 30 Ml Oral.Susp PO 01/11/25 13:55 30 ml ONCE ONE Administration Medical Decision Making Medical Decision Making [facility] Narrative: 29 years old presents today with having abdominal pain. Ongoing for months. Worse over the left upper quadrant area. Already on Prilosec. Had mono 1 year ago. No abdominal surgery. CT scan of the abdomen pelvis was negative for any acute evidence of obstruction abscess perforation. Patient's lipase is normal no evidence for pancreatitis. Patient is white count is normal. Electrolyte was normal. Urine showed no signs of infection. Will discharge patient home close follow-up advised. Differential Diagnosis Differential Diagnoses: The differential diagnosis associated with the presentation includes Diverticulitis, kidney stone, obstruction Admission/Observation Consideration of admission/observation: Escalation of care including admission/observation considered Lab Data MDM Lab Attestation statement: I reviewed the patient's lab results. 01/11/25 11:58 01/11/25 11:58 Labs: Lab Results 01/11/25 01/11/25 01/11/25 Range/Units 11:58 11:58 11:58 WBC 5.9 (4.8-10.8) X10*3/uL RBC 4.55 (4.20-5.50) X10*6/uL Hgb 12.5 (12.0-16.0) g/dl Hct 37.3 (37.0-47.0) % MCV 82.0 (80.0-98.0) fL MCH 27.5 (27.0-33.0) pg MCHC 33.5 (31.0-35.0) g/dl RDW 12.4 (11.0-16.0) % Plt Count 205 (160-400) X10*3/uL MPV 11.4 (9.4-12.3) fL Immature Gran % (Auto) 0.5 H (0.0-0.4) % Neut % (Auto) 64.6 (45-73) % Lymph % (Auto) 29.2 (20-40) % [place] % (Auto) 5.1 (2-11) % Eos % (Auto) 0.3 (0-4) % Baso % (Auto) 0.3 (0-2) % Lymph # (Auto) 1.7 (1.2-4.9) X10*3/uL [place] # (Auto) 0.3 (0.1-1.2) X10*3/uL Eos # (Auto) 0.0 (0.0-0.4) X10*3/uL Baso # (Auto) 0.0 (0.0-0.2) X10*3/uL Abs Immat Gran (auto) 0.03 (0.00-0.03) X10*3/uL Absolute Neuts (auto) 3.8 (2.0-8.3) x10*3/uL Absolute Nucleated RBC 0.000 (0.0-0.012) X10*3/uL Nucleated RBC % (auto) 0.0 (0.0-0.2) /100WBC Sodium 138 (135-145) mmol/L Potassium 4.2 (3.3-5.1) mmol/L Chloride 108 (96-108) mmol/L Carbon Dioxide 22 (22-29) mmol/L Anion Gap 12 (12-20) BUN 16 (9-16) mg/dL Creatinine 0.68 (0.5-1.4) mg/dL Estim Creat Clear Calc 121.9 Estimated GFR > 60 Random Glucose 87 (60-115) mg/dL Calcium 8.7 (8.4-10.2) mg/dL Total Bilirubin 0.8 0.8 (0.0-1.0) mg/dL Direct Bilirubin 0.2 (0.0-0.5) mg/dL AST 18 24 (5-31) U/L ALT 12 (0-31) U/L Alkaline Phosphatase (39-117) U/L Total Protein (6.5-8.0) g/dL Albumin (3.5-5.0) g/dL Lipase (8-78) U/L Urine Color Urine Appearance Urine pH (5.0-9.0) Ur Specific [place] (1.005-1.025) Urine Protein (Neg-Trace) mg/dL Urine Glucose (UA) (Negative) mg/dL Urine Ketones (Negative) mg/dL Urine Blood (Negative) Urine Nitrite (Negative) Ur Leukocyte Esterase (Negative) Urine Test (NEGATIVE) 01/11/25 01/11/25 01/11/25 Range/Units 11:58 11:58 11:58 WBC (4.8-10.8) X10*3/uL RBC (4.20-5.50) X10*6/uL Hgb (12.0-16.0) g/dl Hct (37.0-47.0) % MCV (80.0-98.0) fL MCH (27.0-33.0) pg MCHC (31.0-35.0) g/dl RDW (11.0-16.0) % Plt Count (160-400) X10*3/uL MPV (9.4-12.3) fL Immature Gran % (Auto) (0.0-0.4) % Neut % (Auto) (45-73) % Lymph % (Auto) (20-40) % [place] % (Auto) (2-11) % Eos % (Auto) (0-4) % Baso % (Auto) (0-2) % Lymph # (Auto) (1.2-4.9) X10*3/uL [place] # (Auto) (0.1-1.2) X10*3/uL Eos # (Auto) (0.0-0.4) X10*3/uL Baso # (Auto) (0.0-0.2) X10*3/uL Abs Immat Gran (auto) (0.00-0.03) X10*3/uL Absolute Neuts (auto) (2.0-8.3) x10*3/uL Absolute Nucleated RBC (0.0-0.012) X10*3/uL Nucleated RBC % (auto) (0.0-0.2) /100WBC Sodium (135-145) mmol/L Potassium (3.3-5.1) mmol/L Chloride (96-108) mmol/L Carbon Dioxide (22-29) mmol/L Anion Gap (12-20) BUN (9-16) mg/dL Creatinine (0.5-1.4) mg/dL Estim Creat Clear Calc Estimated GFR Random Glucose (60-115) mg/dL Calcium (8.4-10.2) mg/dL Total Bilirubin (0.0-1.0) mg/dL Direct Bilirubin (0.0-0.5) mg/dL AST (5-31) U/L ALT 15 (0-31) U/L Alkaline Phosphatase 58 59 (39-117) U/L Total Protein 7.0 7.0 (6.5-8.0) g/dL Albumin 4.8 (3.5-5.0) g/dL Lipase (8-78) U/L Urine Color Urine Appearance Urine pH (5.0-9.0) Ur Specific [place] (1.005-1.025) Urine Protein (Neg-Trace) mg/dL Urine Glucose (UA) (Negative) mg/dL Urine Ketones (Negative) mg/dL Urine Blood (Negative) Urine Nitrite (Negative) Ur Leukocyte Esterase (Negative) Urine Test (NEGATIVE) 01/11/25 Range/Units 11:58 WBC (4.8-10.8) X10*3/uL RBC (4.20-5.50) X10*6/uL Hgb (12.0-16.0) g/dl Hct (37.0-47.0) % MCV (80.0-98.0) fL MCH (27.0-33.0) pg MCHC (31.0-35.0) g/dl RDW (11.0-16.0) % Plt Count (160-400) X10*3/uL MPV (9.4-12.3) fL Immature Gran % (Auto) (0.0-0.4) % Neut % (Auto) (45-73) % Lymph % (Auto) (20-40) % [place] % (Auto) (2-11) % Eos % (Auto) (0-4) % Baso % (Auto) (0-2) % Lymph # (Auto) (1.2-4.9) X10*3/uL [place] # (Auto) (0.1-1.2) X10*3/uL Eos # (Auto) (0.0-0.4) X10*3/uL Baso # (Auto) (0.0-0.2) X10*3/uL Abs Immat Gran (auto) (0.00-0.03) X10*3/uL Absolute Neuts (auto) (2.0-8.3) x10*3/uL Absolute Nucleated RBC (0.0-0.012) X10*3/uL Nucleated RBC % (auto) (0.0-0.2) /100WBC Sodium (135-145) mmol/L Potassium (3.3-5.1) mmol/L Chloride (96-108) mmol/L Carbon Dioxide (22-29) mmol/L Anion Gap (12-20) BUN (9-16) mg/dL Creatinine (0.5-1.4) mg/dL Estim Creat Clear Calc Estimated GFR Random Glucose (60-115) mg/dL Calcium (8.4-10.2) mg/dL Total Bilirubin (0.0-1.0) mg/dL Direct Bilirubin (0.0-0.5) mg/dL AST (5-31) U/L ALT (0-31) U/L Alkaline Phosphatase (39-117) U/L Total Protein (6.5-8.0) g/dL Albumin 4.9 (3.5-5.0) g/dL Lipase 16 (8-78) U/L Urine Color Yellow Urine Appearance Clear Urine pH 7.0 (5.0-9.0) Ur Specific [place] 1.020 (1.005-1.025) Urine Protein Negative (Neg-Trace) mg/dL Urine Glucose (UA) Negative (Negative) mg/dL Urine Ketones Negative (Negative) mg/dL Urine Blood Negative (Negative) Urine Nitrite Negative (Negative) Ur Leukocyte Esterase Negative (Negative) Urine Test NEGATIVE (NEGATIVE) Independent Interpretation I performed an independent interpretation of an: CT Scan (No obstruction no abscess no perforation) Radiology Impression Discussion of test interpretation with radiology: I have reviewed the radiologist's reading. Social Determinants Patient?s care significantly limited by Social Determinants of Health including: Problems related to primary support group Discharge Plan Discharge Clinical Impression: Abdominal pain Patient Disposition: Home, Self-Care Instructions: Abdominal Pain (ED) Prescriptions: No Action No Known Home Meds Referrals: Valeria Samayoa PA-C [Primary Care Provider, Endocrinology] - 01/14/25 Print Language: Macedonian
[2025-01-11 13:48] VITALS: BP 110/65; PULSE 80; TEMP 36.9; O2SAT 100
[2025-01-11 14:50] VITALS: BP 105/68; PULSE 84; RESP 16; TEMP 37.1; O2SAT 100
--- NOTE | 2025-01-11 14:53 | PC.NURSE ---
A&O x 3 Patient presents to ED c/o LUQ ABD pain rated 6/10 Pain worse with intake Patient reports having reoccurring mono PAtient c/o nausea no vomiting CT of ABD obtained, awaiting results VSS and up to date Plan of care on going
[2025-01-11] MEDS: Magnesium Hydrox/Alum Hydrox 30 ML ORAL.SUSP PO (14:55)
[2025-01-11 16:09] VITALS: BP 122/73; PULSE 79; RESP 16; TEMP 37; O2SAT 100
[2025-01-11 16:36] VITALS: BP 122/73; PULSE 79; RESP 16; TEMP 37; O2SAT 100
== END 2025-01-11 16:37 | disposition home or self-care (01) ==
PROVIDERS: Emergency Provider Emergency Medicine Emergency Medical Services; PCP Physician Assistant
DX: R10.12 Left upper quadrant pain (principal); Z88.0 Allergy status to penicillin; Z88.5 Allergy status to narcotic agent
CPT/HCPCS: 36415; 74176; 80053; 80076; 81003; 81025; 82248; 83690; 85025; 99284

== ENCOUNTER → 2025-01-11 12:50 | Outpatient (BNV) | payer BC, SELFPAY | PROVIDERS: Emergency Provider Emergency Medicine Emergency Medical Services; PCP Physician Assistant; Visit Provider Radiology Diagnostic Radiology | DX: R10.12 Left upper quadrant pain (principal) | CPT/HCPCS: 74176 ==

== ENCOUNTER 2025-02-20 13:50 | Outpatient (AMB) | payer BC, SELFPAY ==
--- OUTSIDE RECORDS SUMMARY | 2023-10-19 14:58 | XMS_ITS | Encounter Summary ---
Author Organization [facility] Address [address] [place] [address] Care Team Providers Care Keel Press Operator Name Role Phone Cony Guardado MD Unavailable Tanner Santiago MD Primary Care Provider [phone] Encounter Details Date Type Department Care Team (Late st Contact Info) Description 10/19/2023 3:58 PM EDT Hospital Encounter [facility] [address] [place] [address] Social History Tobacco Use Types Packs/Day Years Used Date Smoking Tobacco: Never Smokeless Tobacco: Never Comments:Second hand exposur e. Alcohol Use Standard Drinks/Week Comments Not Currently 0 (1 standard drink = 0.6 oz pur e alcohol) Socially, rarely C Utilities Answer Date Recorded In the past 12 months has th e electric, gas, oil, or water company threatened to shut off services in your home? No 10/28/2024 Social Connection and Isolation Panel Answer Date Recorded In a typical week, how many times do you talk on the phone with family, friends, or neighbors? More than three times a week 10/28/2024 Frequency of Social Gatherin gs with Friends and Family Not on file 10/28/2024 Attends [employer] Services Not on file 10/28 Active Member of Clubs or Organizations Not on f ile 10/28/2024 Attends Club or Organization Meetings Not on oralia e 10/28/2024 Marital Status Not on file 10/28/2024 AUDIT-C Answer Date Recorded Q1: How often do you have a drink containing alcohol? Monthly or less 10/28/2024 Q2: How many drinks containi ng alcohol do you have on a typical day when you are drinking? Patient does not drink Frequency of Binge Drinking Not on file 10/05 Hunger Vital Sign Answer Date Recorded Within the past 12 months, y ou worried that your food would run out before you got the money to buy more. Never true 10/29/19 Within the past 12 months, t he food you bought just didn't last and you didn't have money to get more. Never true 10/28/2024 PRAPARE - Transportation Answer Date Re corded In the past 12 months, has l ack of transportation kept you from medical appointments or from getting medications? No 10/05 In the past 12 months, has l ack of transportation kept you from meetings, work, or from getting things needed for daily living? No 10/28/2024 Housing Stability Vital Sign Answer Juice e Recorded In the last 12 months, was t here a time when you were not able to pay the mortgage or rent on time? No 10/28/2024 In the past 12 months, how m any times have you moved where you were living? 2 10/28/2024 At any time in the past 12 m [facility], were you homeless or living in a jail (including now)? No 10/28/2024 Education Answer Date Recorded What is the highest level of school you have completed or the highest degree you have received? Associate degree: occupational, technical, or vocational program 10/28/2024 Comments No Sex and Gender Information Value Date Recorded Sex Assigned at Female 01/12/2023 4:38 PM EST Legal Sex Female 6:33 PM EST Gender Identity Female 01/12/2023 4:38 PM EST Sexual Orientation Heterosexual (straight) 01/12 4:38 PM EST documented as of this encounter Functional Status * Q1: How often do you have a drink containing alcohol? Answer Date of Assessment Author Monthly or less 10/28/2024 8:09 AM EDT Sarmad, Generic * Q2: How many drinks containing alcohol do you have on a typical day when you are drinking? Answer Date of Assessment Author Patient does not drink 10/28/2024 8:09 AM EDT My chart, Generic documented as of this encounter Plan of Treatment Not on file documented as of this encounter Procedures Procedure Name Priority Date/Time Associated Diagnosis Comments XR CHEST 2 VIEWS STAT 10/19/2023 4:22 PM EDT Acute bronchitis, unspecified organism documented in this encounter Results * XR Chest 2 views (10/19/2023 4:22 PM EDT) Anatomical Region Laterality Modality Chest Computed Radiogr aphy 10/19/2023 4:23 PM EDT Impressions 10/19/2023 4:23 PM EDT No acute cardiopulmonary abnormality. Narrative 10/19/2023 4:23 PM EDT EXAM: XR CHEST 2 VIEWS on 10/19/2023 3:58 PM CLINICAL HISTORY: Cough. COMPARISONS: None TECHNIQUE: 2 views of the chest performed. FINDINGS: The visualized lungs are clear. No pleural effusions are seen. The cardiomediastinal silhouette is normal. Procedure Note Luis Baker MD - 10/19/2023 EXAM: XR CHEST 2 VIEWS on 10/19/2023 3:58 PM CLINICAL HISTORY: Cough. COMPARISONS: None TECHNIQUE: 2 views of the chest performed. FINDINGS: The visualized lungs are clear. No pleural effusions are seen. Thecardiomediastinal silhouette is normal. IMPRESSION: No acute cardiopulmonary abnormality. DEVIN Mitchell IMG DIAGNOSTIC IMAGING ORDERABL ES Final Result documented in this encounter Visit Diagnoses Not on filedocumented in this encounter Care Teams Keel Press Operator Relationship Specialty Start Date End Date Tanner Santiago MD [address] [place] [phone] PCP - General Internal Medicine 08/18/23 Cony Guarddao MD [address] [place] [phone] Gastroenterology 08/16/23 documented as of this encounter
--- NOTE | 2025-02-20 13:57 | A.OFFPC_ITS ---
Vital Signs 02/20/25 13:59 Height 5 ft 5 in Weight 172 lb 6 oz BMI 28.7 BP 108/82 Blood Pressure Location Lt brachial Position Sitting Respiration 14 Pulse 87 Pulse Source Pulse Oximeter Temp 98.3 F Temp Source Oral Pulse Oximetry (%) 98 Oxygen Delivery Method Room Air Intake Visit Reasons: abdominal pain Intake Note: New patient visit Flour Tester Required: No Allergies morphine (MORPHINE) Allergy (Severe, Verified 02/20/25 14:03) THROAT CLOSES amoxicillin (From AUGMENTIN) Allergy (Unknown, Verified 02/20/25 14:03) RASH clavulanic acid (From AUGMENTIN) Allergy (Unknown, Verified 02/20/25 14:03) RASH penicillin V Allergy (Unknown, Verified 02/20/25 14:03) Unknown Penicillins (PENICILLINS) Allergy (Unknown, Verified 02/20/25 14:03) RASH tolnaftate Allergy (Unknown, Verified 02/20/25 14:03) Unknown prochlorperazine (From COMPAZINE) Adverse Reaction (Severe, Verified 02/20/25 14:03) LOSS CONTROL OF MOVEMENTS promethazine (From PHENERGAN) Adverse Reaction (Severe, Verified 02/20/25 14:03) LOSS CONTROL OF MOVEMENTS Antifungal - Imidazole (ANTIFUNGAL - IMIDAZOLE) Adverse Reaction (Unknown, Verified 02/20/25 14:03) PROLONGED QT Macrolide Antibiotics (MACROLIDE ANTIBIOTICS) Adverse Reaction (Unknown, Verified 02/20/25 14:03) PROLONGED Q-T Antihistamine Allergy (Unknown, Uncoded 02/20/25 14:03) Unknown ANTIHISTAMINES Allergy (Unknown, Uncoded 02/20/25 14:03) PROLONGED Q-T Decongestant Allergy (Unknown, Uncoded 02/20/25 14:03) Unknown DECONGESTANTS Allergy (Unknown, Uncoded 02/20/25 14:03) PROLONGED Q-T Medication List - Last Reconciled 02/20/25 by Valeria Samayoa PA-C acetaminophen (Tylenol) 325 mg PO QID PRN Tobacco use date assessed: 02/20/25 Dental Screening Dental Screen Date: 02/20/25 Did you have a dental visit in the last 12 months?: Yes Did you have a dental problem in the last 6 months where you did not have access to dental care?: No Was dental information given to patient?: Patient has dentist HPI abdominal pain HPI Details Patient is a 29 y/o female who presents today to establish care. She says that she is mostly here to get referrals. She was previously followed in [place] and was undergoing workups when her insurance changed and she had to switch to a [place] provider. She has a significant past medical history of asthma, Von Willebrand's, endometriosis, acid reflux, colon polyps. She is requesting referral to Allergy and immunology because when she was in [place] she was mid workup and states that she was told she had some nonspecific abnormalities. She does not know what it was but she gets sick very easily. States that she gets cold symptoms every couple weeks. Tells me that she has a about 30 cold the year if not more. She was also undergoing a workup for chronic abdominal pain. She was following with the her Von Willebrand's and states that they discuss possibly doing a bone marrow biopsy for her frequent illnesses. No records available today Heme: followed with hematology in [place] and wants a referral to [facility]. Pulm: uses rescue inhaler prn. GI:She states about a year ago developed upper abdominal pain which is worse with eating at times and overall tender. Wonders if it could be related to her endometriosis. States that it fluctuates and she did have an endoscopy and col onoscopy this summer in [place]. She does not recall the exact hospital/physician. States that everything was normal other than she did have colon polyps and was told that 1 of the polyps was precancerous and would have to be repeated in 5 years. She does get some nausea at times. Sometimes has diarrhea. Sometimes has blood in the stool. She would like to see GI for more of a workup of this. -she has had a cholecystectomy, appendec barbara Recent unrevealing CT abdomen and pelvis at [facility] Core Rescuer: has a hx of endometriosis. She has needed IUI with her 1st and wants to go back to [facility]. She states that because of her insurance it has to come from her PCP not her lumber checker. fam hx: paternal grandmother breast cancer, gi cancer COUNTS INCLUDE 234 BEDS AT [facility] Social History Patient Tobacco Use Status: Never used Tobacco e-Cigarette/Vaping Use: Never Used Second Hand Smoke Exposure: No service: No Current occupational status: employed Current occupation: Auto account adjuster Current occupational exposures/hazards: No Cognitive needs: No Hearing needs: No Vision needs: No Questionnaire PHQ-9 Over the last 2 weeks, how often have you been bothered by any of the following problems? 1. Little interest or pleasure in doing things: not at all 2. Feeling down, depressed, or hopeless: not at all 3. Trouble falling or staying asleep, or sleeping too much: not at all 4. Feeling tired or having little energy: not at all 5. Poor appetite or overeating: not at all 6. Feeling bad about yourself - or that you are a failure or have let yourself or your family down: not at all 7. Trouble concentrating on things, such as reading the newspaper or watching television: not at all 8. Moving or speaking so slowly that other people could have noticed. Or the opposite - being so fidgety or restless that you have been moving around a lot more than usual: not at all 9. Thoughts that you would be better off or of hurting yourself in some way: not at all Total score: 0 Source: Developed by Drs. Van Corcoran, Isatu Castro, Basil Walsh and colleagues, with an educational yamileth from [employer]. Thrive Questionnaire I am a: Patient What is your living situation today?: I have a steady place to live Within the past 12 months, did the food you bought not last and you didn't have the money to get more?: Never true Within the past 12 months, did you worry whether your food would run out before you got money to buy more?: Never true Do you have trouble paying for medicines?: No Do you have trouble getting transportation to medical appointments?: No Do you have trouble paying your heating and electricity bill?: No Do you have trouble taking care of your child, family member or friend?: No Do you have trouble with day-to-day activities such as bathing, preparing meals, shopping, managing finances, etc.?: No Are you currently unemployed and looking for a job?: No Are you interested in more education?: No Please select the resources that you would like help with: None Currently or been in a relationship where the following occur: I choose not to answer THRIVE Score: 0 AUDIT C Alcohol Use Questionnaire (AUDIT-C) 1. How often do you have a drink containing alcohol?: Never 3. How often do you have six or more drinks on one occasion?: Never Total Score: 0 ANDREEA-7 AMB Questionnaire ANDREEA-7 Feeling nervous, anxious, or on edge: 0 = Not at all Not being able to stop or control worryin = Not at all Worrying too much about different things: 0 = Not at all Trouble relaxin = Not at all Being so restless that it is hard to sit still: 0 = Not at all Becoming easily annoyed or irritable: 0 = Not at all Feeling afraid as if something awful might happen: 0 = Not at all Total ANDREEA-7 score (0-4 normal; 5-9 mild; 10-14 moderate; 15-21 severe): 0 Source: Developed by Drs. Van Corcoran, Isatu Castro, Basil Walsh and colleagues, with an educational yamileth from [employer]. Physical exam (Primary Care) Vital Signs: Last Vital Signs Temp 98.3 F 02/20/25 13:59 Pulse 87 02/20/25 13:59 Resp 14 02/20/25 13:59 BP 108/82 02/20/25 13:59 Pulse Ox 98 02/20/25 13:59 Oxygen Delivery Method Room Air 02/20/25 13:59 BMI result Body Mass Index 28.7 Tobacco/Smoking Status: Tobacco use Status Tobacco use date assessed 02/20/25 02/20/25 14:08 Patient Tobacco Use Status Never used Tobacco 02/20/25 14:08 e-Cigarette/Vaping Use Never Used 02/20/25 14:08 PHQ-9: PHQ-9 Score PHQ-9: Total score 0 02/20/25 14:08 Currently or been in a relationship where the following occur: I choose not to answer Const Orientation/consciousness: patient oriented x3 HENMT Ears: hearing grossly normal bilaterally Neck Thyroid: Thyroid normal Lymphatic: no lymphadenopathy noted Resp Auscultation: clear to auscultation bilaterally Cardio Rate: regular rate Rhythm: regular rhythm Heart sounds: S1 normal heart sound present and S2 normal heart sound present GI Inspection: Yes normal to inspection Palpation (GI): Soft to palpation and Other GI palpation findings present (nontender, no cva tenderness) Auscultation: normoactive bowel sounds Rectal Exam - Female: deferred Skin General skin exam: no rashes or lesions noted Neuro General: patient oriented x3, gait normal and no focal motor deficits Results Reviewed Results Reviewed: CT abdomen: Lung bases are clear. Liver is free of gross focal lesions and ductal dilatation. Gallbladder is absent. Spleen appears unremarkable. Pancreas and adrenal glands appear unremarkable. Kidneys appear unremarkable. No free intraperitoneal fluid or retroperitoneal masses or adenopathy. Abdominal aorta is normal caliber. Bowel loops reveal no abnormal wall thickening or distention. Minimal colonic diverticulosis is present, without CT evidence of diverticulitis. Appendix appears to be surgically absent. No CT evidence of appendicitis. CT pelvis: Trace amount of free pelvic fluid is likely physiologic. Uterus and adnexal structures appear unremarkable. Urinary bladder is free of gross filling defects. No pelvic masses or adenopathy. Osseous structures reveal no destructive osseous lesions. Impression: 1. No acute abnormality or CT explanation for reported history of left-sided pain. Specifically, no urolithiasis or hydroureteronephrosis. Coding Level of Care Code New Pt Level 4 (79390) Add On Problem Visit Only Diagnoses Endometriosis N80.9 Frequently sick R68.89 Mild intermittent asthma J45.20 Von willebrand disease, type 1 D68.01 Chronic abdominal pain R10.9; G89.29 Colon polyps K63.5 Assessment & Plan Assessment & Plan (1) Endometriosis: Code(s): N80.9 - Endometriosis, unspecified Category: Medical Plan: Referral placed (2) Frequently sick: Code(s): R68.89 - Other general symptoms and signs Category: Medical Plan: Not currently ill. Referral to Allergy and immunology (3) Mild intermittent asthma: Code(s): J45.20 - Mild intermittent asthma, uncomplicated Category: Medical Plan: Has inhaler at home (4) Von willebrand disease, type 1: Code(s): D68.01 - Von Willebrand disease, type 1 Category: Medical Plan: Referral to Hematology (5) Chronic abdominal pain: Code(s): R10.9 - Unspecified abdominal pain; G89.29 - Other chronic pain Category: Medical Plan: Referral to GI (6) Colon polyps: Code(s): K63.5 - Polyp of colon Category: Medical Plan: As above Orders: Orders Lipid Panel Today N80.9 - Endometriosis, unspecified, R68.89 - Other general symptoms and signs TSH reflex Free T4 Today N80.9 - Endometriosis, unspecified, R68.89 - Other general symptoms and signs Referrals Allergy & Immunology Referral J45.20 - Mild intermittent asthma, uncomplicated, R68.89 - Other general symptoms and signs Gastroenterology Referral G89.29 - Other chronic pain, K63.5 - Polyp of colon, R10.9 - Unspecified abdominal pain Hematology & Oncology Referral D68.01 - Von Willebrand disease, type 1 Infertility Reproductive Referral (female) N80.9 - Endometriosis, unspecified, Z31.9 - Encounter for procreative management, unspecified
[2025-02-20 13:59] VITALS: BP 108/82; PULSE 87; RESP 14; TEMP 36.8; O2SAT 98; BMI 28.7
--- OUTSIDE RECORDS SUMMARY | 2025-02-20 18:04 | XMS_ITS | Encounter Summary ---
Author Organization [facility] Address [address] [place] [address] Phone Care Team Providers Care Loan Review Officer Name Role Phone Unavailable Primary Care Provider Unavailabl e Encounter Details Date Type Department Care Team (Late st Contact Info) Description 04/30/2009 Documentation EM Family Medicine [address] [place], [place] [phone] Family Medicine, Physician [address] [place] [address] Social History Tobacco Use Types Packs/Day Years [...]
--- OUTSIDE RECORDS SUMMARY | 2025-02-20 18:04 | XMS_ITS | Encounter Summary ---
Author Organization [facility] Address [address] [place] [address] Care Team Providers Care Shore Working Supervisor Name Role Phone Cony Guardado MD Unavailable Tanner Santiago MD Primary Care Provider [phone] Encounter Details Date Type Department Care Team (Late st Contact Info) Description 08/14/2024 Scanned Document [facility] [address] [facility] [place] [phone] Louie Nguyen MD [address] [facility] [address] [place] [address] Social History Tobacco Use Types Packs/Day Years [...] on filedocumented in this encounter Care Teams Shore Working Supervisor Relationship Specialty Start Date End Date Tanner Santiago MD [address] [place] [id number] PCP - General Internal Medicine 08/18/23 Cony Guardado MD [address] [place] [phone] Gastroenterology 08/16/23 documented as of this encounter
--- OUTSIDE RECORDS SUMMARY | 2025-02-20 18:04 | XMS_ITS | Encounter Summary ---
Author Organization [facility] Address [address] [place] [address] Phone Care Team Providers Care Pet Counselor Name Role Phone Unavailable Primary Care Provider Unavailabl e Encounter Details Date Type Department Care Team (Late st Contact Info) Description 04/14/2009 Documentation EM Family Medicine [address] [place], [place] [phone] Family Medicine, Physician [address] [place] [address] Social History Tobacco Use Types Packs/Day Years [...]
--- OUTSIDE RECORDS SUMMARY | 2025-02-20 18:04 | XMS_ITS | Clinical Summary ---
Author Organization [facility] Address [address] [place] [address] Care Team Providers Care Cloud Infrastructure Architect Name Role Phone Cony Guardado MD Unavailable Tanner Santiago MD Primary Care Provider [phone] Allergies Active Allergy Reactions Criticality Noted Date [...] with breakfast. Active Riboflavin 400 MG Tab 4 Active albuterol (PROVENTIL HFA; VENTOLIN HFA) 108 (90 Base) MCG/ACT inhalerIndicatio ns:Mild intermittent asthma without complication Inhale 2 puffs 4 times daily (every 6 hours) as needed for wheezing. 1 each 4 Active bisacodyl (DULCOLAX) 5 MG EC tabletIndication s:Abnormal CT scan, colon,Iron deficiency,Loose stools,Weight loss Take 4 tablets (20 mg total) by mouth once. Take all 4 tablets 1 hour prior to starting to drink prep, on day prior to colonoscopy. 4 tablet 5 Active Additional Information Patient not taking.Reported on 10/30/2024 tranexamic acid (LYSTEDA) 650 MG Tab tabletIndication s:Heavy Menstrual Bleeding Take 2 tablets (1,300 mg total) by mouth 3 (three) times a day. 30 tablet 1 5 Active Additional Information Patient not taking.Reported on 10/30/2024 medroxyPROGESTER one (PROVERA) 5 MG tablet 5 Active OMEprazole (PriLOSEC) 40 MG capsuleIndicatio ns:Dyspepsia,Muc us in stool,Bloody stool TAKE 1 CAPSULE BY MOUTH EVERY MORNING BEFORE BREAKFAST. TAKE ATLEAST 1/2 HOUR BEFORE MEAL. 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 08/18/2023 08/18/2023 PFO (patent foramen ovale) 08/18/202308/17 Endometriosis 08/18/2023 08/18/2023 Current smoker 08/18/2023 08/18/2023 Asthma, moderate persistent 08/18/202308/04 Polycystic ovaries 08/18/2023 08/18/2023 Prolonged QT interval 05/17/2011 08/18/2023 Overview (08/18/2023): See pediatric cardiolgy report 12/14/2011 Weight loss 05/10/2011 08/18/2023 Resolved Problems Problem Noted Date Diagnosed Date Resolved Date Mood disorder 08/18/2023 08/18/2023 08/18/2023 Immunizations Immunization Administration Dates Next Due DTaP 06/05/1998, 5,1993,08/11,1993 DTaP / HiB / IPV 07/12/1994, 4,1993,06/09 H1N1 All Forms 04/30/2009 H1N1 Inj Preservative Free 04/30/2009 HPV Quadrivalent 09/18/2008,12/22/2007, 8 Hep B, Adolescent or Pediatric 1993,1993,1993 Hib 07/12/1994, 4,1993,06/09 Hib (PRP-T) 07/12/1994, 4,1993,06/09 IPV 06/05/1998, 5,1993,06/09 Influenza (AFLURIA/FLUZONE) Inactivated/Split Quadrivalent with Preservative IM 12/07/2010,12/10/2009,12/22/2007 Influenza Inactivated/Split Preservative Free IM 12/26/2022,12/29/2021,12/16/2020,01/19,12/06/2017,02/09/2017,12/20/2016 ,12/18/2015,02/11/2015,12/18/2013,08/2012,12/07/2010,12/10/2009, 8,12/19/2006,01/05/2006,07/28/2003 Influenza Virus Trivalent Sp lit Vaccine (MDV) IM 12/26/2022,12/29/2021,12/16/2020,01/19,12/06/2017,02/09/2017,12/20/2016 ,12/18/2015,02/11/2015,12/18/2013,08/2012,12/07/2010,12/10/2009, 8,12/19/2006,01/05/2006,07/28/2003 Influenza Whole 12/04/2018 Influenza, Unspecified 01/01/2024,2009,12/19/2006,07/27 [...] Maternal Grandmother Vero Bleeding Disorder Mother Mom Vondai nt Crohn's disease Mother Mom Diabetes Paternal [...] and Family Not on file 10/28/2024 Attends Sikhism Services Not on file 10/28 Active Member [...] any time in the past 12 [facility], were you homeless or living in a care home (including now)? No 10/28/2024 Education Answer Date [...] Procedure Name Priority Date/Time Associated Diagnosis Comments THINPREP PAP(CIRCULAR KNITTER HELPER) HPV SCR RFX HPV 16,18/45 Routine 08/19/2024 12:00 AM EDT HIV 1/2 AG/AB CMIA REFLEX TO CONFIRMATION Routine 08/19/2023 9:54 AM EDT Mononucleosis syndrome from Last 3 Months or Most Recently Relevant to Health Maintenance Results * ThinPrep Pap(Qi Specialist) HPV Scr Rfx HPV 16,18/45 (08/19/2024 12:00 AM EDT) Report Report amazing[facility]unes [facility] Comment: Final Gynecological Cytology Report ThinPrep Pap Test, HPV Screen, Reflex HPV Genotype SPECIMEN ADEQUACY: SATISFACTORY FOR EVALUATION; ENDOCERVICAL/TRANSFORMATION ZONE COMPONENT ABSENT/INSUFFICIENT . INTERPRETATION: NEGATIVE FOR INTRAEPITHELIAL LESION OR MALIGNANCY. Electronically Signed: Evan Conner CT(ASCP) CLINICAL INFORMATION: LMP: NG Clinical History: NG Biopsy Date: NG Specimen Source: Cervix, Endocervix Previous Pap Date: NG HPV RESULTS: HPV mRNA E6/E7 [id number] Approved: 08/20/24 Negative REF RANGE: Negative CPT Codes: 95359 ICD Codes: Z12.4 08/19/2024 08/20/2024 12: 04 PM EDT Pauly Aleman MD LAB AMB PATH/CYTO PERRY S Final Result [facility] [address] [place], [place] * HIV 1/2 Ag/Ab CMIA Reflex to Confirmation (08/19/2023 9:54 AM EDT) HIV Ag/Ab, 4th Gen NON-REACT MARGARITO NON-REACT MARGARITO [facility] Comment: HIV-1 antigen and HIV-1/HIV-2 antibodies were [...] purpose. For additional information please refer to http://education.Elixserve/faq/KHB560 (This link is being provided for informational/ educational purposes only.) The performance of this assay has not been clinically validated in patients less than 2 years old. Blood Blood specimen / Unknown 08/19/2023 9:54 AM EDT 08/19/2023 9:55 AM EDT Narrative [facility] - 08/21/2023 5:42 PM EDT FASTING:YES FASTING: YES us Tanner Santiago MD LAB BLOOD ORDERABLES Final Resu lt [facility] [address] [place] [phone] from Last 3 Months or Most Recently Relevant to Health Maintenance Insurance [facility] Care Teams Cloud Infrastructure Architect Relationship Specialty Start Date End Date Tanner Santiago MD [address] [place] [id number] PCP - General Internal Medicine 08/18/23 Cony Guardado MD [address] [place] [phone] Gastroenterology 08/16/23
--- OUTSIDE RECORDS SUMMARY | 2025-02-20 18:04 | XMS_ITS | Clinical Summary ---
Author Organization [address] Address [address] [place] [phone] Phone Care Team Providers Care Litigation Services Manager Name Role Phone Unavailable Primary Care Provider [...]
--- OUTSIDE RECORDS SUMMARY | 2025-02-20 18:05 | XMS_ITS | Encounter Summary ---
Author Organization [facility] Address [address] [place] [address] Care Team Providers Care Boiler Erector Name Role Phone Cony Guardado MD Unavailable Tanner Santiago MD Primary Care Provider [phone] Encounter Details Date Type Department Care Team (Late st Contact Info) Description 08/31/2023 Scanned Document [facility] [address] [place], [place] [phone] Tanner Santiago MD [address] [place] [address] Social History Tobacco Use Types Packs/Day Years [...] on filedocumented in this encounter Care Teams Boiler Erector Relationship Specialty Start Date End Date Tanner Santiago MD [address] [place] [address] PCP - General Internal Medicine 08/18/23 Cony Guardado MD [address] [place] [address] Gastroenterology 08/16/23 documented as of this encounter
--- OUTSIDE RECORDS SUMMARY | 2025-02-20 18:05 | XMS_ITS | Encounter Summary ---
Author Organization [facility] Address [address] [place] [address] Care Team Providers Care Electrostatic Paint Operator Name Role Phone Cony Guardado MD Unavailable Tanner Santiago MD Primary Care Provider [phone] Encounter Details Date Type Department Care Team (Late st Contact Info) Description 08/21/2023 Scanned Document [facility] [address] [place] [address] [place] [phone] Cony Guardado MD [address] [place] [address] Social History Tobacco Use Types Packs/Day Years [...] on filedocumented in this encounter Care Teams Electrostatic Paint Operator Relationship Specialty Start Date End Date Tanner Santiago MD [address] [place] [address] PCP - General Internal Medicine 08/18/23 Cony Guardado MD [address] [place] [address] Gastroenterology 08/16/23 documented as of this encounter
--- OUTSIDE RECORDS SUMMARY | 2025-02-20 18:05 | XMS_ITS | Clinical Summary ---
Author Organization [facility] Address [address] [place] [address] Phone Care Team Providers Care Motorcoach Driver Name Role Phone Be Woodward MD Primary Care Provider [phone] Allergies Active Allergy Reactions Criticality Noted Date [...] reflux 12/28/2023 Overview (12/28/2023): Kiko Fundal Plication [address] [place]ón Adverse effect of ibuprofen [...] (Infanrix) 6wks to less than 7yo ,10/19/1994,1993,08/11,1993 [id number] (Pentacel) 2mo to less than 5yo 07/12/1994,1993,1993,06/09 [...] valent (Pneumovax 23) 2yo and older 09/05/2017 Td Tetanus diptheria (Tdvax) 7yo and older 06/26/2003 Td Tetanus diptheria, preser vative free (Tenivac) 7yo and older 06/26/2003 Tdap Tetanus diptheria acell ular pertussis (Boostrix; Adacel) 7yo and older 09/18/2008 Varicella live (Varivax) 12m o and older 05/16/2012,03/06/1997 Surgical History Surgery Date Site/Laterality Comments EYE SURGERY 2000 PROCEDURE: HISTORICAL EYE SURGERY; COMMENT: lazy eye APPENDECTOMY 2005 PROCEDURE: KS APPENDECTOMY CHOLECYSTECTOMY 2005 PROCEDURE: KS CHOLECYSTECTOMY MOLE REMOVAL 2007 PROCEDURE: HISTORICAL MOLE (REMOVAL OF); COMMENT: benign OTHER SURGICAL HISTORY 2007 PROCEDURE: KS UNLISTED DIAGNOSTIC GASTROENTEROLOGY PROCEDURE; COMMENT: Kiko fundoplication ESOPHAGOGASTRODUODENOSCOPY 09/05/12 [facility] propofol PROCEDURE: KS ESOPHAGOGASTRODUODENOSCOPY TRANSORAL DIAGNOSTIC; COMMENT: normal OTHER SURGICAL HISTORY 09/03/2013 PROCEDURE: KS DILATION & CURETTAGE DX&/THER NONOBSTETRIC OTHER SURGICAL HISTORY 2007 PROCEDURE:Onset;COMMENT:For Acid Reflux SHOULDER SURGERY 2019 Left PROCEDURE:SHOULDER SURGERY OTHER SURGICAL HISTORY 2014 Left PROCEDURE:knee sugery TONSILLECTOMY PROCEDURE:TONSILLECTOMY;COMMEN T:[id number] OTHER SURGICAL HISTORY Left PROCEDURE:Eye Sugery;COMMENT:around SECTION 2021 PROCEDURE: SECTION APPENDECTOMY 2007 PROCEDURE:APPENDECTOMY [...] loss 02/03/2005 DX:Weight loss Constipation DX:Constipation Gastritis [id number] DX:Gastritis S/P Kiko fundoplication (w ithout gastrostomy [...] Health Maintenance Due Date Last Done Comments Drug Screen 1993 Non-Opioid Controlled Substance Agreement 1993 Cervical Cancer Screening: Pap Smear 2014 Pneumococcal [...] Health Maintenance Results * HIV Screening (08/19/2023) Pathologist [facility] HIV Screening Abstracted Historical Provider HEALTH MAINTENANCE Final Result from Last 3 Months or Most Recently Relevant to Health Maintenance Insurance * Guarantor: Ashlie Chávez Account Type Relation to Patient Date of Phone Billing Address Personal/Family Self 1995 [phone] (Work) [address] [place] [address] MEDICAID [place] Care Teams Motorcoach Driver Relationship Specialty Start Date End Date Be Woodward MD [address] [place] [address] PCP - General Internal Medicine 03/13/15
--- OUTSIDE RECORDS SUMMARY | 2025-02-20 18:05 | XMS_ITS | Encounter Summary ---
Author Organization [facility] Address [address] [place] [address] Phone Care Team Providers Care Tax Evaluator Name Role Phone Unavailable Primary Care Provider Unavailabl e Encounter Details Date Type Department Care Team (Late st Contact Info) Description 07/23/2017 Conversion Encounter [facility] [address] [address] Social History Tobacco Use Types Packs/Day Years [...]
--- OUTSIDE RECORDS SUMMARY | 2025-02-20 18:05 | XMS_ITS | Patient Health Record ---
Author Organization [employer] [facility] Address [address] [address] Care Team Providers Care Installation Service Representative Name Role Phone Trace (RETIRED) Be RODRIGUEZ Primary Care Provide Lola Olvera Unavailable [phone] Allergies Allergen (clinical drug ingredient) Drug/Non Drug [...] Status Risk Notes Problem Uncomplicated asthma (disorder) (856659244) Unspecified asthma, uncomplicated (J45.909) Active confirmed Problem Intermenstrual bleeding - irregular (56600069) Excessive and frequent menstruation with irregular cycle (N92.1) Active confirmed Problem Irregular Menstruation (72670513) Other specified irregular menstruation (N92.5) Active confirmed Problem Dysmenorrhea (778147409) Dysmenorrhea, unspecified (N94.6) Active confirmed Plan Of [...] Start Date Coverage End Date [facility] [address] [address] [place] [address] [id number]UZ Self - patient is [...]
--- OUTSIDE RECORDS SUMMARY | 2025-02-20 18:05 | XMS_ITS | Clinical Summary ---
Author Organization [facility] Address [address] [place] [id number] Phone Care Team Providers Care Quill Cleaning Machine Operator Name Role Phone Unavailable Primary [...]
--- OUTSIDE RECORDS SUMMARY | 2025-02-20 18:05 | XMS_ITS | Clinical Summary ---
Author Organization [facility] Prior to 08/03/[address] [place] [id number] Care Team Providers Care Chain Builder Name Role Phone Unavailable Primary Care Provider [...] as needed. 30 tablet 0 12/26/2023 Active Active Problems Problem Noted Date Diagnosed [...] 08/18/2023 12/26/2023 Overview: Dr Castellon at [address] Castellon at [address] Disease due to severe acute respiratory syndrome [...] Engerix 1993,1993,1993 IPV 06/05/1998, 5,1993,06/09 Influenza - [id number] All Form ulations (Inactive) 04/30/2009 Influenza [id number], pfree (inactive) 04/30/2009 Influenza Quad (Afluria/Fluz one) 0.5mL >=6mon Vial (SD-IIV4) 12/07/2010,12/10/2009,12/22/2007 Influenza Trivalent (Fluzone /Afluria) 5.0mL Multi-dose Vial 12/26/2022,12/29/2021,12/16/2020,01/19,12/06/2017,02/09/2017,12/20/2016 ,12/18/2015,02/11/2015,12/18/2013,11/0 08/2012,12/07/2010,12/10/2009, 8,12/19/2006,01/05/2006,07/28/2003 Influenza Vaccine, Unspecifi ed formulation 12/19/2006,07/28/2003 [...]
== END 2025-02-20 14:44 | disposition home or self-care (01) ==
LOC: HO.HMCFM 13:50
PROVIDERS: PCP Physician Assistant; Visit Provider Physician Assistant
DX: N80.9 Endometriosis, unspecified (principal); R68.89 Other general symptoms and signs; J45.20 Mild intermittent asthma, uncomplicated; D68.01 Von Willebrand disease, type 1; R10.9 Unspecified abdominal pain; G89.29 Other chronic pain; K63.5 Polyp of colon